=== PATIENT | female | born 1975 | race Caucasian/White ===

== ENCOUNTER 2017-07-16 17:28 | Observation (INO) | payer MEDICAID ==
[~2017-07-16] VITALS: Ht 182.9 cm; Wt 76.2 kg
--- NOTE | ~2017-07-16 | HEMODYNAMI ---
PATIENT:SHELLY DOUGHERTY MEDICAL RECORD: [id number] : 75 [facility] AD[facility]ION DATE: 07/16/17 Generatedon:07/17/201711:42 Patient name: SHELLY DOUGHERTY Patient #: [id number] SSN: : 1975 Date of study: 07/17/2017 Page: Of Hemodynamic Procedure Report Patient Data Patient Demographics Procedure consent was obtained First Name: SHELLY Gender: Female Last Name: LADONNA : 1975 Middle Initial: M Age: 41 year(s) Patient #: [id number] Race: Unknown Additional ID: [id number] Contact details [address]: [address] [place] [address] State: [place] City: [place] Zip code: [address] Past Medical History Allergies: No known allergies Admission Admission Data Admission Date: 07/16/2017 Admission Time: 22:05 Room #: 2119 Procedure Procedure Types Cath Procedure Diagnostic Procedure LHC LHC w/Coronaries PCI Procedure Coronary Stent Coronary Stent Initial Miscellaneous Procedures Moderate Sedation up to 45 minutes Procedure Description Procedure Date Procedure Date: 07/17/2017 Procedure Start Time: 10:47 Procedure End Time: 11:42 Procedure Staff Name Function Francisco Fleming MD Performing Physician Angélica Alaniz RT Monitor Ange Worthington RT Scrub Edinson Davis RN Nurse Procedure Data Cath Procedure Fluoroscopy Diagnostic fluoroscopy Total fluoroscopy Time: 9.7 time: 9.7 min min Diagnostic fluoroscopy Total fluoroscopy dose: dose: 1134 mGy 1134 mGy Contrast Material Contrast Material Type Amount (ml) Isovue 300 179 Entry Location Entry Primary Successful Side Size Upsize 1 Upsize Entry Closure Successful Closure Location (Fr) (Fr) 2 (Fr) Remarks Device Remarks Femoral Right 5 Fr Exoseal artery Femoral Left 6 Fr 6 Fr 6 Fr Exoseal artery Short Mid-Length Short Femoral Left 5 Fr Manual vein Compressio n Estimated blood loss: 10 ml Diagnostic catheters Device Type Used For End Catheter Placement Cordis 5Fr JL 4.0 Left Coronary Catheter (MP) Angiography Cordis 5Fr 3DRC Catheter Right Coronary (MP) Angiography Cordis 5Fr 3DRC Catheter Right Coronary (MP) Angiography Cordis 5Fr Pigtail LV Angiography Catheter (MP) Cordis 5Fr Pigtail Abdominal Catheter (MP) aortogram Procedure Complications No complications Procedure Medications Medication Administration Route Dosage Oxygen NC 2 l/min Lidocaine 2% added to field 20 Heparin Flush Bag added to field 2 bags (1000units/500ml NS) 0.9% NaCl I.V. 100 ml/hr Versed I.V. 1 mg Fentanyl I.V. 50 mcg Versed I.V. 1 mg Fentanyl I.V. 50 mcg Fentanyl I.V. 50 mcg Versed I.V. 1 mg Fentanyl I.V. 50 mcg Heparin Bolus I.V. 4000 units Integrilin (Bolus I.V. 6.8 ml 2mg/ml) Fentanyl I.V. 100 mcg Lopressor I.V. 5 mg Versed I.V. 1 mg Plavix P.O. 75 mg Hemodynamics Rest Heart Rate: 76 (bpm) Pressure Samples Time Site Value (mmHg) Purpose Heart Use Rate(bpm) 11:14 LV 104/13,13 EDP 93 11:15 AO 112/76(92) Pullback 93 11:15 LV 113/15,17 Pullback 93 Gradients Valve Time Site 1 Site 2 Mean SEP/DFP Peak To Heart Use (mmHg) (sec/min) Peak Rate (mmHg) (bpm) Aortic 11:15 LV AO 7 15 1 93 113/15,17 112/76(92) Calculations Valve P-P Mean Valve Index Valve Source Name Gradient Area Flow (cm2) Aortic 1 7 1 7 Snapshots Pre Cath Intra NCS Post Cath Vital Signs Time Heart Resp SPO2 etCO2 NIBP (mmHg) Rhythm Pain Sedation Rate (ipm) (%) (mmHg) Status Level (bpm) 10:35:33 76 12 98 34.1 116/79(101) NSR 0 (11) 10(A) , No pain 10:40:09 76 15 99 31.1 123/82(105) NSR 0 (11) 10(A) , No pain 10:44:50 82 20 96 31.8 116/68(90) NSR 0 (11) 10(A) , No pain 10:49:24 84 17 97 32.5 131/80(98) NSR 0 (11) 10(A) , No pain 10:54:03 83 15 95 36.2 127/72(92) NSR 0 (11) 9(A) , No pain 10:58:41 90 16 97 34.8 115/80(98) NSR 0 (11) 9(A) , No pain 11:03:16 91 16 95 36.2 124/82(98) NSR 0 (11) 9(A) , No pain 11:07:50 94 12 94 31.1 127/77(98) NSR 0 (11) 10(A) , No pain 11:12:23 89 14 94 37.7 118/81(92) NSR 0 (11) 9(A) , No pain 11:16:59 90 17 94 39.9 132/79(105) NSR 0 (11) 9(A) , No pain 11:21:36 101 16 95 38.5 121/73(97) NSR w/ ST 0 (11) 10(A) Elevation , No pain 11:26:57 110 18 96 29.6 163/111(136) NSR w/ ST 0 (11) 10(A) Elevation , No pain 11:32:15 98 16 95 39.3 160/101(134) NSR 0 (11) 9(A) , No pain 11:36:55 81 16 95 39.2 156/108(128) NSR 0 (11) 10(A) , No pain 11:41:36 90 14 95 38.5 149/102(132) NSR 0 (11) 10(A) , No pain Medications Time Medication Route Dose Verified Delivered Reason Notes Effectiveness by by 10:45:22 Oxygen NC 2 Francisco Buffie used for l/min [facility] Maxwell Davis RN procedure 10:45:30 Lidocaine 2% added 20ml Francisco Buffie for local to vial [facility]. Maxwell Davis RN anesthetic field SIMPSON 10:45:36 Heparin Flush added 2 Francisco Buffie used for Bag to bags [facility]. Maxwell Davis RN procedure (1000units/500ml field SIMPSON NS) 10:45:44 0.9% NaCl I.V. 100 Francisco Buffie Per physician ml/hr [facility] Maxwell Davis RN, MD 10:47:09 Versed I.V. 1 mg Francisco Buffie for sedation [facility] Maxwell Davis RN, MD 10:47:15 Fentanyl I.V. 50 Francisco Buffie for sedation mcg [facility] Maxwell Davis RN, MD 10:53:59 Versed I.V. 1 mg Francisco Buffie for sedation St. Maxwell Davis RN, MD 10:54:02 Fentanyl I.V. 50 Francisco Buffie for sedation mcg [facility] Maxwell Davis RN, MD 11:00:56 Fentanyl I.V. 50 Francisco Buffie for sedation mcg [facility] Maxwell Davis RN, MD 11:05:24 Versed I.V. 1 mg Francisco Buffie for sedation St. Maxwell Davis RN, MD 11:05:30 Fentanyl I.V. 50 Francisco Buffie for sedation mcg [facility] Maxwell Davis RN, MD 11:15:29 Heparin Bolus I.V. 4000 Francisco Buffie for verifi ed units [facility]. Maxwell Davis RN anticoagulation with dr MD wasserman 11:19:49 Integrilin I.V. 6.8 Francisco Buffie for wasted (Bolus 2mg/ml) ml [facility] Maxwell Davis RN antiplatelet 3.2 ml MD therapy of vial 11:22:58 Fentanyl I.V. 100 Francisco Buffie for sedation mcg [facility] Maxwell Davis RN, MD 11:27:47 Versed I.V. 1 mg Francisco Buffie for sedation St. Maxwell Davis RN, MD 11:31:15 Lopressor I.V. 5 mg Francisco Buffie Per physician St. Maxwell Davis RN, MD 11:39:09 Plavix P.O. 75 mg Francisco Buff[address] for [facility] Maxwell Davis RN antiplatelet MD therapy Procedure Log Time Note 10:15:26 Ange Worthington RT(R) sent for patient. Start room use. 10:27:32 Time tracking: Regular hours 10:27:36 Plan of Care:Hemodynamics will remain stable., Cardiac rhythm will remain stable., Comfort level will be maintained., Respiratory function will remain adequate., Patient/ family verbilizes understanding of procedure., Procedure tolerated without complication., Recovers from procedure without complications.. 10:27:41 Patient received from PCU to CCL 1 Alert and oriented. Tansferred to table in Supine position. 10:27:42 Warm blankets applied, and enzo hugger turned on for patient comfort. 10:27:42 Correct patient and procedure confirmed by team. 10:27:43 Signed procedure consent form obtained from patient. 10:27:44 ECG and BP/O2 sat monitors applied to patient. 10:27:46 Full Disclosure recording started 10:34:45 Vital chart was started 10:34:48 Rhythm: sinus rhythm 10:34:53 H&P Date Dictated: 07/17/2017 Within 30 days and on chart.. 10:34:55 Pre-procedure instructions explained to patient. 10:34:56 Pre-op teaching completed and patient verbalized understanding. 10:34:58 Family in patients room. 10:34:59 Patient NPO since Midnight. 10:35:06 Patient allergic to No known allergies 10:35:08 Is the patient allergic to Iodine/contrast media? No. 10:35:13 Patient diabetic? No. 10:35:20 Previous problem with sedation/anesthesia? No ? 10:35:22 Snore? Yes 10:35:25 Sleep apnea? No 10:35:26 Deviated septum? No 10:35:27 Opens mouth fully? Yes 10:35:27 Sticks out tongue? Yes 10:35:29 Airway obstruction? No ? 10:35:31 Dentures? No ? 10:35:39 Is patient on blood thinner?Yes 10:35:41 ACC The patient was administered the following blood thiners within the last 24 hours: ACCPlavix 10:35:44 Pre procedure: right dorsailis pedis pulse 2+ Normal; easily identifiable; not easily obliterated 10:35:46 Patient pain scale 0/10 ?. 10:35:51 IV patent on arrival in right hand with 0.9% NaCl at O. 10:35:55 Lab results completed and on chart. 10:35:58 Right groin area was prepped with chlora-prep and draped in sterile fashion 10:35:59 Alarms reviewed by R. N. 10:36:00 Sharps counted by scrub and verified by R.N. 10:36:04 Use device set Femoral Dx 10:36:05 Acist Syringe opened to sterile field. 10:36:06 Bag Decanter opened to sterile field. 10:36:06 Medline Cath Pack opened to sterile field. 10:36:06 Terumo 5Fr [place] Sheath opened to sterile field. 10:36:07 St Phi 260cm J .035 wire opened to sterile field. 10:36:08 Acist Hand Control opened to sterile field. 10:36:09 Acist Manifold opened to sterile field. 10:36:09 Diagnostic Infinity 5Fr Multipack catheter opened to sterile field. 10:36:10 Tegaderm 4 x 4 opened to sterile field. 10:36:45 IV Extension Set opened to sterile field. 10:38:16 PERCUTANEOUS ENTRY 19GA needle opened to sterile field. 10:39:10 Physician paged 10:40:54 Baseline sample Acquired. 10:41:29 Zero performed for pressure channel P1 10:45:22 Oxygen 2 l/min NC was administered by Edinson Davis RN; used for procedure; 10:45:30 Lidocaine 2% 20ml vial added to field was administered by Edinson Davis RN; for local anesthetic; 10:45:36 Heparin Flush Bag (1000units/500ml NS) 2 bags added to field was administered by Edinson Davis RN; used for procedure; 10:45:44 0.9% NaCl 100 ml/hr I.V. was administered by Edinson Davis RN; Per physician; 10:46:21 Final Timeout: patient, procedure, and site verified with staff and physician. All members of the team are in agreement. 10:46:23 Right groin site verified by team. 10:46:26 Physical assessment completed. ASA score P 2 - A patient with mild systemic disease as per Francisco Fleming MD. 10:46:29 Sedation plan: IV Moderate Sedation Medication:Versed, Fentanyl 10:47:09 Versed 1 mg I.V. was administered by Edinson Davis RN; for sedation; 10:47:15 Fentanyl 50 mcg I.V. was administered by Edinson Davis RN; for sedation; 10:47:33 Procedure started. 10:47:40 Local anesthetic to right femoral artery with Lidocaine 2% by Francisco Fleming MD.INITIAL ACCESS ONLY 10:49:09 A 5 Fr sheath was inserted into the Right Femoral artery 10:49:20 A Cordis 5Fr JL 4.0 Catheter (MP) was advanced over the wire and used for Left Coronary Angiography. 10:52:18 Catheter removed. 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 10:53:59 Versed 1 mg I.V. was administered by Edinson Davis RN; for sedation; 10:54:02 Fentanyl 50 mcg I.V. was administered by Edinson Davis RN; for sedation; 10:54:11 Terumo ANGLE 260cm glide wire opened to sterile field. 10:54:28 Merit BasixCompak Inflation Kit opened to sterile field. 10:54:29 Terumo 6Fr [place] Sheath opened to sterile field. 10:54:59 Eastman Whisper J 300cm 0.014 guide wire opened to sterile field. 10:55:42 exchange glide wire advanced. 10:58:44 Wire removed. 10:58:54 Left groin area was prepped with chlora-prep and draped in sterile fashion 10:59:20 Left groin prepped due to Dissection in Right Iliac. 10:59:27 Local anesthetic to left femerol artery with Lidocaine 2% by Francisco Fleming MD.ADDITIONAL ACCESS 11:00:56 Fentanyl 50 mcg I.V. was administered by Edinson Davis RN; for sedation; 11:05:24 Versed 1 mg I.V. was administered by Edinson Davis RN; for sedation; 11:05:30 Fentanyl 50 mcg I.V. was administered by Edinson Davis RN; for sedation; 11:08:11 Cordis 6Fr Brite Tip 35cm Sheath opened to sterile field. 11:09:58 A 5 Fr sheath was inserted into the Left Femoral vein 11:10:17 ST Phi 4Fr Sheath opened to sterile field. 11:10:22 Terumo 5Fr [place] Sheath opened to sterile field. 11:10:48 A 6 Fr Short sheath was inserted into the Left Femoral artery 11:11:01 Sheath upsized to a 6 Fr Mid-Length. 11:11:37 A Cordis 5Fr 3DRC Catheter (MP) was advanced over the wire and used for Right Coronary Angiography. 11:13:25 Catheter removed. 11:13:34 A Cordis 5Fr Pigtail Catheter (MP) was advanced over the wire and used for LV Angiography. 11:14:42 LV gram done using KRAUS 11:14:44 LV hemodynamics recorded. 11:14:51 Injector settings: Ml/sec: 5, Volume: 15, 11:15:00 EF : 60 % 11:15:29 Heparin Bolus 4000 units I.V. was administered by Edinson Davis RN; for anticoagulation; verified with dr wasserman 11:15:58 Catheter removed. 11:16:48 Medtronic Launcher 6Fr JL 3.5 guide catheter opened to sterile field. 11:19:49 Integrilin (Bolus 2mg/ml) 6.8 ml I.V. was administered by Edinson Davis RN; for antiplatelet therapy; wasted 3.2 ml of vial 11:19:53 ACC Pre-intervention JAYJAY Flow is 0. 11:20:05 Study PCI Site: [place] pLAD has 100% stenosis. 11:20:23 Inflation number: 1 A Eldridge Sci [place] 3.0 X 15 balloon was prepped and advanced across the Prox LAD, then inflated to 8 RANCHO for 0:12 (min:sec). 11:21:06 Inflation number: 2 The Eldridge Sci [place] 3.0 X 15 balloon was reinflated across the Prox LAD, to 8 RANCHO for 0:22 (min:sec). 11:21:55 Inflation number: 3 The Eldridge Sci [place] 3.0 X 15 balloon was reinflated across the Prox LAD, to 8 RANCHO for 0:24 (min:sec). 11:22:41 Inflation number: 4 The Eldridge Sci [place] 3.0 X 15 balloon was reinflated across the Prox LAD, to 10 RANCHO for 0:18 (min:sec). 11::58 Fentanyl 100 mcg I.V. was administered by Edinson Davis RN; for sedation; 11:25:25 Balloon removed over the wire. 11:27:47 Versed 1 mg I.V. was administered by Edinson Davis RN; for sedation; 11:27:56 Inflation Number: 5 A Medtronic Integrity 3.0 X 15 stent was prepped and advanced across the Prox LAD. The stent was deployed at 14 RANCHO for 0:24 (min:sec). 11:28:29 Stent catheter was removed intact over wire. 11:28:30 Wire removed. 11:29:08 Guide catheter removed. 11:31:15 Lopressor 5 mg I.V. was administered by Edinson Davis RN; Per physician; 11:31:36 A Cordis 5Fr Pigtail Catheter (MP) was advanced over the wire and used for Abdominal aortogram. unable to advance catheter 11:32:47 Cordis 5Fr Exoseal opened to sterile field. 11:32:48 Cordis 6Fr Exoseal opened to sterile field. 11:32:56 Catheter removed. 11:33:10 Sheath upsized to a 6 Fr Short. 11:33:10 Sheath removed intact; hemostasis achieved with Exoseal to the Left Femoral artery. 11:33:18 Sheath removed intact; hemostasis achieved with Exoseal to the Right Femoral artery. 11:33:21 Procedure ended.(Physican Out) 11:34:10 Tegaderm 4 x 4 opened to sterile field. 11:38:10 Fluoroscopy time 09.70 minutes. 11:38:15 Flurop Dose total: 1134 11:38:15 Fluoroscopy dose: 1134 mGy 11:38:28 Contrast amount:Isovue 300 179ml. 11:38:30 Sharps counted by scrub and verified by R.N. 11:38:33 Insertion/operative site no bleeding no hematoma. 11:38:36 Post-op/insertion site Right Femoral artery dressed using a 4 x 4 and Tegaderm. 11:38:42 Post-op/insertion site Left Femoral artery dressed using a 4 x 4 and Tegaderm. 11:38:49 Post right femoral artery:stable, clean and dry 11:38:59 Sheath removed intact; hemostasis achieved with Manual Compression to the Left Femoral vein. 11:39:02 Post Procedure Pulses reassessed and unchanged 11:39:05 Post-procedure physical assessment completed. ASA score P 2 - A patient with mild systemic disease as per Francisco Fleming MD. 11:39:07 Post procedure rhythm: unchanged. 11:39:09 Plavix 75 mg P.O. was administered by Edinson Davis RN; for antiplatelet therapy; 11:39:10 Estimated blood loss: 10 ml 11:39:12 Post procedure instruction explained to patient.Patient verbalizes understanding. 11:39:13 Patient needs reinforcement of post procedure teaching. 11:39:30 Procedure type changed to Cath procedure, Diagnostic procedure, LHC, LHC w/Coronaries, PCI procedure, Coronary Stent, Coronary Stent Initial, Miscellaneous Procedures, Moderate Sedation up to 45 minutes 11:39:39 Procedure Complication : No complications 11:39:42 See physician's report for complete and final results. 11:40:36 Procedure and supply charges have been captured, reviewed, submitted and are correct. 11:42:01 Vital chart was stopped 11:42:03 Report given to PCU. 11:42:07 Patient transfered to PCU with Bed. 11:42:15 Procedure ended. 11:42:15 Full Disclosure recording stopped 11:42:21 End room use (Document Last) Intervention Summary Intervention Notes Time ActionType Lesion and Equipment Action# Pressure Duration Attributes Used 11:20:23 Inflate Prox LAD Eldridge 1 8 00:12 balloon Sci [place] 3.0 X 15 balloon 11:21:06 Reinflate Prox LAD Eldridge 2 8 00:22 balloon Sci [place] 3.0 X 15 balloon 11:21:55 Reinflate Prox LAD Eldridge 3 8 00:24 balloon Sci [place] 3.0 X 15 balloon 11:22:41 Reinflate Prox LAD Eldridge 4 10 00:19 balloon Sci [place] 3.0 X 15 balloon 11:27:56 Place stent Prox LAD Medtronic 5 14 00:25 Integrity 3.0 X 15 stent Device Usage Item Name Manufacture Quantity Catalog Number Hospital Part Current Min imal Lot# / Charge Number Stock Stock Serial# Code Acist Acist 1 30025 464002 397728 146979 20 Syringe Medical Systems Inc Bag Decanter Microtek 1 2002S 599846 38181 176271 5 Medical Inc. Medline Cath Cardinal 1 [id number] 449912 92039 810143 5 Pack Health Terumo 5Fr Terumo 2 [id number] 520909 010585 698286 [address] [place] [address] [facility] St Phi 1 827032 761465 405927 897772 30 260cm J .035 wire Acist Hand Acist 1 45379 336510 535245 151175 5 Control Medical Systems Inc Acist Acist 1 49011 110594 462697 500513 5 Manifold Medical Systems Inc Diagnostic Cardinal 1 [id number] 488891 51110 620146 30 Infinity 5Fr Health Multipack catheter Tegaderm 4 x 3M 2 1626W 807848 683890 290258 5 4 IV Extension Hospira 1 50308-71 735770 84612 136663 5 Set PERCUTANEOUS [facility] 1 [id number] 493739 540185 5 ENTRY 19GA needle Cordis 5Fr Cardinal 1 734754 5 JL 4.0 Health Catheter (MP) Cordis 5Fr Cardinal 1 248999 5 3DRC Health Catheter (MP) Terumo ANGLE Terumo 1 YP1900 373600 309063 704595 5 260cm glide wire Merit Merit 1 RM8983 253263 342851 703554 15 42Floors Medical Inflation Kit Terumo 6Fr Terumo 1 KPN158 549224 951201 618805 40 [place] Sheath Eastman Eastman 1 [id number] 400961 031346 724632 5 Whisper J Vascular 300cm 0.014 guide wire Cordis 6Fr Cardinal 1 [id number] 348029 009162 571681 1 Brite Tip Health 35[address] Sheath ST Phi 4Fr St Phi 1 989689 925845 775751 355622 5 Sheath Cordis 5Fr Cardinal 1 075331 5 Pigtail Health Catheter (MP) Medtronic Medtronic 1 [id number] 697637 96722 325486 1 Launcher 6Fr JL 3.5 guide catheter Eldridge Sci Eldridge 1 [id number] 355652 063246 787131 1 [id number] [place] 3.0 Scientific X 15 balloon Medtronic Medtronic 1 [id number] 238533 154983 2 [id number] Integrity 3.0 X 15 stent Cordis 5Fr Cardinal 1 EX500 990223 033190 002142 10 Exoseal Health Cordis 6Fr Cardinal 1 EX600 622574 598395 614926 10 Exoseal Health Signature Audit [place] Stage Time Signature Unsigned Intra-Procedure 07/17/2017 Angélica 11:42:37 AM Counts RT(R) Signatures Monitor : Angélica Signature : Counts RT Date : Time : [facility] [address] [place] [address]
[2017-07-16 18:46] LABS: BASOPHILS 0.2 % (0-2); EOSINOPHILS 1.6 % (0-7); HEMATOCRIT 45.4 % (36.0-48.0); HEMOGLOBIN 16.1 g/dL (12-16); IMMATURE GRANULOCYTES 0.3 % (0-5); LYMPHOCYTES 21.5 % (15-50); MCH 31.1 pg (26.0-34.0); MCHC 35.5 g/dL (31.0-37.0); MCV 87.8 fL (80.0-100.0); MEAN PLATELET VOLUME 10.1 fL (7.4-10.4); MONOCYTES 4.9 % (2-11); NEUTROPHILS 71.5 % (40-80); PLATELET COUNT 290 10x3/uL (130-400); RBC 5.17 10x6/uL (4.00-5.40); RDW 12.7 % (11.5-14.5); WBC 15.4 10x3/uL (4.8-10.8)
[2017-07-16 19:19] LABS: ALBUMIN 3.5 g/dL (3.4-5.0); ALKALINE PHOSPHATASE 84 U/L (46-116); ALT (SGPT) 18 U/L (10-68); BILIRUBIN - TOTAL 0.18 mg/dL (0.2-1.3); CALC OSMOLALITY 278 mosm/kg (275-300); CALCIUM 9.4 mg/dL (8.5-10.1); CARBON DIOXIDE 20.6 mmol/L (21.0-32.0); CHLORIDE - SERUM 106 mmol/L (98-107); CREATININE - SERUM 0.6 mg/dL (0.6-1.3); GLUCOSE 95 mg/dL (74-106); POTASSIUM - SERUM 3.9 mmol/L (3.5-5.1); PROTEIN - SERUM 7.5 g/dL (6.4-8.2); SODIUM 141 mmol/L (136-145); UREA NITROGEN 8 mg/dL (7-18); eGFR NON AFRICAN AMERICAN > 90 mL/min (90-120)
[2017-07-16 19:36] LABS: CHOL - HDL RATIO 8.8 ratio (2.3-4.1); CHOLESTEROL, TOTAL 273 mg/dL (0-200); CREATINE KINASE 76 UL (21-215); HDL CHOLESTEROL 31 mg/dL (32-96); LDL CHOLESTEROL 199 mg/dL (0-100); LDL-HDL RATIO 6.4 ratio (1.5-3.5); TRIGLYCERIDE 216 mg/dL (30-200)
[2017-07-16 19:38] LABS: APPEARANCE CLEAR (CLEAR); BILIRUBIN NEGATIVE (NEGATIVE); COLOR YELLOW (YELLOW); GLUCOSE NEGATIVE (NEGATIVE); KETONE NEGATIVE (NEGATIVE); NITRITE NEGATIVE (NEGATIVE); PROTEIN NEGATIVE (NEGATIVE); UROBILINOGEN NORMAL (NORMAL)
[2017-07-16 19:50] LABS: TROPONIN-I 0.357 ng/mL (0.000-0.060)
[2017-07-16 23:19] LABS: CKMB 11.6 U/L (0.0-3.6); CREATINE KINASE 122 UL (21-215)
--- NOTE | 2017-07-16 23:20 | NUR ---
REPORT RECEIVED FROM BART FALCON IN ER. STATES THERE IS A 20G IN RIGHT WRIST. STATES THAT PT HAS PAIN IN CHEST THAT RADIATES TO LEFT ARM, WHEN ASKED IF MORHINE WAS GIVEN SHE STATED NO, THERE IS NO ORDER FOR MORPHINE. I ASKED WHY SINCE PT IS A CHEST PAIN ADMIT?. SHE STATED ITS JUST NOT, WE GAVE HER NITRO. STATED THAT ASA, NITRO, PLAVIX AND LOVENOX WAS GIVEN IN ER. WILL ADMIT PT TO ROOM 3585
[2017-07-16 23:21] LABS: TROPONIN-I 2.101 ng/mL (0.000-0.060)
--- NOTE | 2017-07-16 23:30 | NUR ---
PT ARRIVED TO ROOM 2118. NO ID BAND ON ARRIVAL. PT HAS ONE NOW. PT HAS A 20G IV ON RIGHT WRIST S/L. PT LAYING ON FLOOR. GOT HIM A CHAIR HE CHOSE TO STAY ON FLOOR AND SLEEP. PT TELEMETRY APPLIED. PT VERBALIZED UNDERSTANDING OF BEING NPO. PT AAO. DENIES ANY NEEDS AT THIS TIME, C/O PAIN IN LEFT ARM. WILL SPEAK WITH [facility] ABOUT THIS. BED LOW AND CALL LIGHT IN REACH. WILL CPOC
[2017-07-16] MEDS ORDERED: METOPROLOL TART50 MG PO (23:37)
[2017-07-16] MEDS ORDERED: ATIVAN1 MG PO (23:38)
[2017-07-16] MEDS ORDERED: CELEXA20 MG PO (23:39)
[2017-07-16] MEDS ORDERED: SYNTHROID50 MCG PO (23:41)
[2017-07-17] VITALS: BP 148/92
[2017-07-17 01:51] VITALS: BP 148/92; Ht 182.9 cm; Wt 76.2 kg
[2017-07-17 04:00] VITALS: BP 126/90
--- NOTE | 2017-07-17 04:04 | NUR ---
PT ASLEEP. PT NORMAL SINUS, 68 WITH PVC ON THE MONITOR. RESPIRATIONS EVEN AND UNLABORED. NO S/S OF DISTRESS. BED LOW AND CALL LIGHT IN REACH. WILL CPOC
--- NOTE | 2017-07-17 07:30 | NUR ---
RECEIVED PT IN BED AAOX4 RESP UNLABORED SKIN W/D COLOR WNL DENIES ANY NEEDS OR DISCOMFORT AT THIS TIME NAD NOTED
[2017-07-17 08:00] VITALS: BP 126/78
--- NOTE | 2017-07-17 10:24 | NUR ---
TO ANIMAL CARE ATTENDANT VIA BED IN STABLE CONDITION
--- NOTE | 2017-07-17 12:00 | NUR ---
RECEIVED PT BACK FROM EXPERIMENTAL PREFLIGHT MECHANIC VSS PPPX4 RT AND LT GROIN C/D/I WILL CONTINE TO MONITOR
[2017-07-17 16:00] VITALS: BP 143/81
[2017-07-17] MEDS ORDERED: LIPITOR20 MG PO (18:09)
[2017-07-17] MEDS ORDERED: PLAVIX75 MG PO (18:10)
--- NOTE | 2017-07-17 18:46 | NUR ---
REVIEWED DISCHARGE INSTRUCTIONS WITH PT STATES UNDERSTANDING COPY GIVEN DCD SALINE LOCK TO RT HAND WITH IV CATHETER INTACT SITE FREE OF REDNESS OR EDEMA PT DISCHARGED HOME IN STABLE CONDITION WITH ALL PERSONAL BELONGINGS
--- NOTE | 2017-07-18 11:39 | HP ---
PATIENT: SHELLY BONILLA MEDICAL RECORD: [id number] ACCOUNT: [id number] LOCATION:[facility].2119 : 75 ADMISSION DATE: 07/16/17 HISTORY AND PHYSICAL EXAMINATION HISTORY OF PRESENT ILLNESS: This is a 41-year-old female with no known history of coronary artery disease. She has history of hypertension and hypothyroidism, on replacement. She has been having intermittent chest tightness and pressure since approximately Wednesday, radiating to the left arm. Intermittent dyspnea and nausea. Presented and found to have ST-T changes, minor really lateral and elevated troponins consistent with non-STEMI. We are asked to see her concerning cardiovascular. She is admitted for further evaluation. PAST MEDICAL HISTORY: Includes; 1. History of hypertension. 2. Hyperlipidemia, not on treatment. 3. Hypothyroidism, on replacement. ALLERGIES: None known. MEDICATIONS: Typically include metoprolol 50 b.i.d., Celexa 20 every day, Ativan 1 mg p.o. t.i.d. p.r.n., Synthroid 50 mcg every day. SOCIAL HISTORY: Works at [employer]. She does smoke. Denies illicit drug use. Easily takes care of all ADLs. REVIEW OF SYSTEMS: The patient reports easy bruising but reports no swollen glands. The patient reports no fever, no night sweats, no significant weight gain, no significant weight loss. No significant exercise tolerance. The patient reports no dry eyes, no irritation, no vision change. Patient reports no difficulty hearing and no ear pain. Patient reports no frequent nose bleeds or nose and sinus problems. Patient reports on arm pain on exertion. No shortness of breath while lying down. No history of heart murmur. Patient reports no cough, no wheezing or coughing up blood. Patient reports no abdominal pain, no vomiting. Normal appetite. No diarrhea and not vomiting blood. No nausea and no constipation. Patient reports no incontinence. No difficulty urinating. No hematuria. No increased frequency. Patient reports no muscle aches. No weakness, no arthralgias, no back pain. No swelling of the extremities. Patient reports no abnormal mole, no jaundice, no rashes. Reports no loss of consciousness. No weakness and no numbness. No seizures, dizziness, or headaches. The patient reports no depression, no sleep disturbance, feeling safe in a relationship and no alcohol abuse. Patient reports on fatigue. Reports no runny nose or sinus pressure. No itching, no hives, and no frequent sneezing. PHYSICAL EXAMINATION: GENERAL: Pleasant female, in no acute distress. VITAL SIGNS: Blood pressure 126/78, pulse 77 and regular. HEENT: Normocephalic, atraumatic. NECK: No bruits noted. HEART: Regular. LUNGS: Rosa clear. ABDOMEN: Soft, nontender. EXTREMITIES: Pulses 2+ with no edema. NEUROLOGIC: Grossly intact. HISTORY AND PHYSICAL [id number] SHELLY BONILLA DIAGNOSTIC DATA: ECG shows lateral nonspecific ST-T changes. IMPRESSION: Udu-LB-byndewtyq myocardial infarction. PLAN: Diagnostic angiography, intervention based on the above. TRANSINT:[id number] Voice Confirmation ID: [id number] DOCUMENT ID: [id number] FIDE LUGO MD at 1139 CC: [id number] DICTATION DATE: 07/17/17 0843 RUG WASHER: 07/17/17 0930 DIS IN 07/17/17 [id number] [place] [address]
--- NOTE | 2017-07-18 11:39 | OP ---
PATIENT NAME: SHELLY BONILLA MEDICAL RECORD: [id number] :75 LOCATION:D.M2 D.2119 ADMISSION DATE:07/16/17 SURGEON: FIDE LUGO MD DATE OF OPERATION: 07/17/2017 PROCEDURES: Left heart catheterization, selective coronary angiography, right femoral artery approach, and left femoral artery approach. Questionable disease in both iliacs with difficulty ____ long sheath on the left. FINDINGS: Left ventriculography in 30-degree KRAUS view: Normal wall motion, normal systolic function. CORONARY ANATOMY LEFT MAIN: Left main is free of disease. LAD: LAD is free of disease in diagonal system. CIRCUMFLEX: Small vessel, about 80% stenosis distally. RAMUS: Basically subtotal with what appears to be a reasonable vessel distally. RIGHT CORONARY ARTERY: Has multiple ectatic areas. PLAN: We will plan intervention to subtotaled ramus momentarily. A JL4 guide catheter provided excellent guide catheter support, followed by 300 cm Whisper wire was placed across the subtotaled ramus down this vessel. Mutliple balloon inflations with 3.0 x 15 Pepin balloon. Stent deployed was a 3.0 x 15 Integrity nondrug-eluting stent up to 14 atmospheres. Final angiography shows excellent resolution with nice plumping of the distal vessel. JAYJAY flow improved from 0 to 3. Integrilin was used in the case. Plavix had been loaded previously. Sheath closed with ExoSeal device. Plan intervention to the circumflex at a later date. TRANSINT:[id number] Voice Confirmation ID: [id number] DOCUMENT ID: [id number] FIDE LUGO MD at 1139 CC: [id number] DICTATION DATE: 07/17/17 1146 SENIOR PACKAGING ENGINEER: 07/17/17 1246 DIS IN 07/17/17 [address] [address] [place] [address]
--- NOTE | 2017-07-18 11:39 | DS ---
PATIENT:SHELLY BONILLA :75 MEDICAL RECORD: [id number] DISCHARGE SUMMARY ADMISSION DATE: 07/16/17 DISCHARGE DATE: 07/17/17 DATE OF ADMISSION: 07/16/2017. DATE OF DISCHARGE: 07/17/2017. PROBLEM LIST: 1. Non-ST elevation myocardial infarction. 2. Coronary artery disease. 3. Hypertension. BRIEF HISTORY AND HOSPITAL COURSE: She was admitted with a non-ST elevation myocardial infarction, underwent intervention to the OM, good results, discharged home in good condition. ACTIVITY: As tolerated. DIET: AHA diet. FOLLOWUP: Will be intervention of the circumflex at a later date. TRANSINT:[id number] Voice Confirmation ID: [id number] DOCUMENT ID: [id number] FIDE LUGO MD at 1139 CC: [id number] DICTATION DATE: 07/17/17 1304 PHP PROGRAMMER: 07/17/17 1459 DIS IN 07/17/17 [address] [address] [place] [address]
== END 2017-07-17 18:46 | disposition home or self-care (01) ==
LOC: D.ER 17:28 → OBSVTIME 22:05 → D.M2 22:05
PROVIDERS: Emergency Medicine; Family Medicine; Physician Assistant Medical; ADMIT Internal Medicine Interventional Cardiology
DX: I21.4 Non-ST elevation (NSTEMI) myocardial infarction (principal); I25.10 Atherosclerotic heart disease of native coronary artery without angina pectoris; E03.9 Hypothyroidism, unspecified; E78.5 Hyperlipidemia, unspecified; I10 Essential (primary) hypertension

== ENCOUNTER 2017-08-05 10:50 | Outpatient (CLI) | payer MEDICAID ==
[~2017-08-05] VITALS: Ht 182.9 cm; Wt 84.1 kg
--- NOTE | ~2017-08-05 | HEMODYNAMI ---
PATIENT:SHELLY BONILLA MEDICAL RECORD: [id number] : 75 LOCATION:DJUAN CARLOS ADMISSION DATE: 08/05/17 Generatedon:08/05/201714:15 Patient name: SHELLY BONILLA Patient #: [id number] SSN : : 1975 Date of study: 08/05/2017 Page: Of Hemodynamic Procedure Report Patient Data Patient Demographics Procedure consent was obtained First Name: SHELLY Gender: Female Last Name: CHAD : 1975 Middle Initial: M Age: 41 year(s) Patient #: [id number] Race: Unknown Additional ID: [id number] Contact details Address: [address] [place] [address] State: [place] City: [place] Zip code: [address] Past Medical History Allergies: No known allergies Admission Admission Data Admission Date: 08/05/2017 Admission Time: 10:50 Procedure Procedure Types Cath Procedure PCI Procedure Coronary Stent Coronary Stent Initial Miscellaneous Procedures Moderate Sedation up to 30 minutes Procedure Description Procedure Date Procedure Date: 08/05/2017 Procedure Start Time: 13:44 Procedure End Time: 14:13 Procedure Staff Name Function Francisco Fleming MD Performing Physician Ange Worthington RT Monitor Nancy Mcdonnell RT Scrub Zhen Arita RN Nurse Avis Pretty RN Nurse Procedure Data Cath Procedure Fluoroscopy Diagnostic fluoroscopy Total fluoroscopy Time: 7.7 time: 7.7 min min Diagnostic fluoroscopy Total fluoroscopy dose: 789 dose: 789 mGy mGy Contrast Material Contrast Material Type Amount (ml) Isovue 300 80 Entry Location Entry Primary Successful Side Size Upsize Upsize Entry Closure Riddle ccessful Closure Location (Fr) 1 (Fr) 2 (Fr) Remarks Device Remarks Radial Right 6 Fr Mechanical artery Short Compression Estimated blood loss: 5 ml Procedure Complications No complications Procedure Medications Medication Administration Route Dosage 0.9% NaCl I.V. 100 ml/hr Oxygen NC 2 l/min Lidocaine 2% added to field 20 Heparin Flush Bag added to field 2 bags (1000units/500ml NS) Radial Cocktail added to field 1 syringe (Verapomil 2mg/Nitro 400mcg/Heparin 1500units) Versed I.V. 2 mg Fentanyl I.V. 50 mcg Fentanyl I.V. 50 mcg Versed I.V. 1 mg Versed I.V. 1 mg Fentanyl I.V. 100 mcg Heparin Bolus I.V. 4000 units Versed I.V. 1 mg Versed I.V. 1 mg Fentanyl I.V. 50 mcg Fentanyl I.V. 50 mcg Hemodynamics Rest Heart Rate: 90 (bpm) Snapshots Pre Cath Intra NCS Post Cath Vital Signs Time Heart Resp SPO2 etCO2 NIBP (mmHg) Rhythm Pain Sedation Rate (ipm) (%) (mmHg) Status Level (bpm) 13:29:36 78 16 100 25.6 119/73(99) NSR 0 (11) 10(A) , No pain 13:33:43 89 16 99 24.2 116/73(100) NSR 0 (11) 10(A) , No pain 13:37:51 88 19 99 36.3 110/73(91) NSR 0 (11) 10(A) , No pain 13:41:55 89 17 98 36.3 118/75(86) NSR 0 (11) 10(A) , No pain 13:46:05 90 19 98 35.5 108/69(97) NSR 0 (11) 10(A) , No pain 13:50:06 99 20 96 34 113/77(86) NSR 0 (11) 10(A) , No pain 13:54:16 103 17 96 37 134/60(85) NSR 0 (11) 9(A) , No pain 13:58:32 92 17 98 38.5 122/66(94) NSR 0 (11) 9(A) , No pain 14:02:38 102 20 98 37 132/77(105) NSR 0 (11) 10(A) , No pain 14:06:48 81 20 98 40 144/80(110) NSR 0 (11) 9(A) , No pain 14:11:00 83 19 98 37.7 139/87(131) NSR 0 (11) 10(A) , No pain Medications Time Medication Route Dose Verified Delivered Reason Not es Effectiveness by by 13:08:17 0.9% NaCl I.V. 100ml/hr Francisco Avis used for [facility] RN procedure 13:08:26 Oxygen NC 2 l/min Francisco Avis Per physician [facility] RN, MD 13:08:39 Lidocaine 2% added 20ml Francisco Singh for local to vial [facility] anesthetic field MD SIMPSON 13:08:46 Heparin Flush added 2 bags Francisco Singh used for Bag to [facility] procedure (1000units/500ml field MD SIMPSON NS) 13:36:02 Radial Cocktail added 1 Francisco Francisco for (Verapomil to syringe [facility] vasodilation 2mg/Nitro field MD SIMPSON 400mcg/Heparin 1500units) 13:41:08 Versed I.V. 2 mg Francisco Avis for sedation [facility] RN, MD 13:41:19 Fentanyl I.V. 50 mcg Francisco Avis for sedation [facility] RN, MD 13:44:53 Fentanyl I.V. 50 mcg Francisco Avis for sedation [facility] RN, MD 13:45:01 Versed I.V. 1 mg Francisco Avis for sedation [facility] RN, MD 13:46:39 Heparin Bolus I.V. 4000 Francisco Avis for surendra ified units [facility] Pretty RN anticoagulation by dr. MD wasserman 13:48:29 Versed I.V. 1 mg Francisco Avis for sedation [facility] RN, MD 13:48:39 Fentanyl I.V. 100 mcg Francisco Avis for sedation [facility] RN, MD 13:50:14 Versed I.V. 1 mg Francisco Avis for sedation surendra ified [facility] Pretty RN by dr. MD wasserman 13:51:49 Versed I.V. 1 mg Francisco Avis for sedation surendra ified [facility] Pretty RN by dr. MD wasserman 13:55:06 Fentanyl I.V. 50 mcg Francisco Avis for sedation surendra ified [facility] Maxwell Pretty RN by dr. MD wasserman 14:00:01 Fentanyl I.V. 50 mcg Francisco Avis for sedation surendra ified [facility] Maxwell Pretty RN by dr. MD wasserman Procedure Log Time Note 13:03:47 Diagnostic Cath Status : Elective 13:04:23 Ange Worthington RT(R) sent for patient. Start room use. 13:04:23 Time tracking: Regular hours 13:04:28 Plan of Care:Hemodynamics will remain stable., Cardiac rhythm will remain stable., Comfort level will be maintained., Respiratory function will remain adequate., Patient/ family verbilizes understanding of procedure., Procedure tolerated without complication., Recovers from procedure without complications.. 13:08:17 0.9% NaCl 100ml/hr I.V. was administered by Avis Pretty RN; used for procedure; 13:08:26 Oxygen 2 l/min NC was administered by Avis Pretty RN; Per physician; 13:08:39 Lidocaine 2% 20ml vial added to field was administered by Francisco Fleming MD; for local anesthetic; 13:08:46 Heparin Flush Bag (1000units/500ml NS) 2 bags added to field was administered by Francisco Fleming MD; used for procedure; 13:23:15 Patient received from Pre/Post Procedure Room to [facility] 2 Alert and oriented. Tansferred to table in Supine position. 13:23:16 Warm blankets applied, and enzo hugger turned on for patient comfort. 13:23:17 Correct patient and procedure confirmed by team. 13:23:18 Signed procedure consent form obtained from patient. 13:23:19 ECG and BP/O2 sat monitors applied to patient. 13:28:30 Vital chart was started 13:36:02 Radial Cocktail (Verapomil 2mg/Nitro 400mcg/Heparin 1500units) 1 syringe added to field was administered by Francisco Fleming MD; for vasodilation; 13:38:40 Baseline sample Acquired. 13:38:45 Rhythm: sinus rhythm 13:38:47 Full Disclosure recording started 13:38:51 H&P Date Dictated: 08/05/2017 H&P Addendum completed by physician on day of procedure. (MUST COMPLETE FOR ALL OUTPATIENTS), New H&P dictated by physician.. 13:38:54 Pre-procedure instructions explained to patient. 13:39:07 Pre-op teaching completed and patient verbalized understanding. 13:39:10 Family in patients room. 13:39:11 Patient NPO since Midnight. 13:39:17 Is the patient allergic to Iodine/contrast media? No. 13:39:18 Was the patient premedicated? No 13:39:20 Is patient on blood thinner?Yes 13:39:23 ACC The patient was administered the following blood thiners within the last 24 hours: ACCPlavix 13:39:30 Patient diabetic? No. 13:39:33 Previous problem with sedation/anesthesia? No ? 13:39:34 Snore? Yes 13:39:35 Sleep apnea? No 13:39:36 Deviated septum? No 13:39:38 Opens mouth fully? Yes 13:39:40 Sticks out tongue? Yes 13:39:43 Airway obstruction? No ? 13:39:46 Dentures? No ? 13:39:49 Pre procedure: right dorsailis pedis pulse 2+ Normal; easily identifiable; not easily obliterated 13:39:52 Pre procedure: left dorsailis pedis pulse 2+ Normal; easily identifiable; not easily obliterated 13:39:54 Patient pain scale 0/10 ?. 13:40:02 IV patent on arrival in right antecubital with 0.9% NaCl at [facility]. 13:40:14 Lab results completed and on chart. 13:40:19 Right Radial & Right Groin area was prepped with chlora-prep and draped in sterile fashion 13:40:20 Alarms reviewed by R. N. 13:40:20 Sharps counted by scrub and verified by R.N. 13:40:21 Physician arrived 13:40:22 --------ALL STOP TIME OUT------ 13:40:22 Final Timeout: patient, procedure, and site verified with staff and physician. All members of the team are in agreement. 13:40:26 Right Radial & Right Groin site verified by team. 13:40:28 Physical assessment completed. ASA score P 2 - A patient with mild systemic disease as per Francisco Fleming MD. 13:40:32 Sedation plan: IV Moderate Sedation Medication:Versed, Fentanyl 13:40:[address] FELICIANO PCI 13:40:46 INFLATOR Merit BasixCompak ([id number]) opened to sterile field. 13:40:47 SHEATH 6FR [place]on ([id number]) opened to sterile field. 13:41:00 Use device set Acist 13:41:01 ACIST Manifold (88949) opened to sterile field. 13:41:02 ACIST Hand Control (43265) opened to sterile field. 13:41:02 ACIST Syringe (09766) opened to sterile field. 13:41:08 Versed 2 mg I.V. was administered by Avis Pretty RN; for sedation; 13:41:19 Fentanyl 50 mcg I.V. was administered by Avis Pretty RN; for sedation; 13:43:09 Zero performed for pressure channel P1 13:43:14 Zero performed for pressure channel P1 13:44:16 Procedure started. 13:44:20 Local anesthetic to right radial artery with Lidocaine 2% by Francisco Fleming MD.INITIAL ACCESS ONLY 13:44:29 A 6 Fr Short sheath was inserted into the Right Radial artery 13:44:53 Fentanyl 50 mcg I.V. was administered by Avis Pretty RN; for sedation; 13:44:56 SHEATH 6FR Slender ([id number]) opened to sterile field. 13:45:01 Versed 1 mg I.V. was administered by Avis Pretty RN; for sedation; 13:45:09 GUIDE 6FR HS I catheter (LA6HSI) opened to sterile field. 13:46:39 Heparin Bolus 4000 units I.V. was administered by Avis Pretty RN; for anticoagulation; verified by dr. wasserman 13:47:52 6 Fr hs 1 guide catheter was inserted over the wire 13:48:29 Versed 1 mg I.V. was administered by Avis Pretty RN; for sedation; 13:48:39 Fentanyl 100 mcg I.V. was administered by Avis Pretty RN; for sedation; 13:50:14 Versed 1 mg I.V. was administered by Avis Pretty RN; for sedation; verified by dr. wasserman 13:51:49 Versed 1 mg I.V. was administered by Avsi Pretty RN; for sedation; verified by dr. wasserman 13:52:14 Guide Catheter removed. unable to cannulate vessel. 13:53:47 GUIDE 6FR AR 1.0 catheter ([id number]) opened to sterile field. 13:55:06 Fentanyl 50 mcg I.V. was administered by Avis Pretty RN; for sedation; verified by dr. wasserman 13:55:22 WHISPER 300cm guide wire ([id number]) opened to sterile field. 13:55:36 RCA angiography performed. 13:57:28 whisper wire advanced. 13:59:31 Inflation Number: 1 A INTEGRITY OTW 3.5 X 26 stent ([id number]) was prepped and advanced across the Dist RCA. The stent was deployed at 12 RANCHO for 0:30 (min:sec). 14:00:01 Fentanyl 50 mcg I.V. was administered by Avis Pretty RN; for sedation; verified by dr. wasserman 14:01:02 Stent catheter was removed intact over wire. 14:04:03 Inflation Number: 1 A INTEGRITY OTW 3.5 X 30 stent ([id number]) was prepped and advanced across the Mid RCA. The stent was deployed at 14 RANCHO for 0:30 (min:sec). 14:05:08 Stent catheter was removed intact over wire. 14:08:29 Inflation Number: 1 A INTEGRITY OTW 4.0 X 30 stent ([id number]) was prepped and advanced across the Prox RCA. The stent was deployed at 12 RANCHO for 0:30 (min:sec). 14:09:14 Stent catheter was removed intact over wire. 14:09:15 Wire removed. 14:09:15 Guide catheter removed. 14:09:53 TR BAND Standard ([id number]) opened to sterile field. 14:11:07 Sheath removed intact; hemostasis achieved with Mechanical Compression to the Right Radial artery. 14:11:08 Procedure ended.(Physican Out) 14:11:23 Fluoroscopy time 07.70 minutes. 14:11:29 Flurop Dose total: 789 14:11:29 Fluoroscopy dose: 789 mGy 14:11:34 Contrast amount:Isovue 300 80ml. 14:11:38 TR band inflated with 10cc of air. 14:11:40 Insertion/operative site no bleeding no hematoma. 14:11:44 Post right radial artery:stable 14:11:45 Post Procedure Pulses reassessed and unchanged 14:11:50 Post procedure rhythm: unchanged. 14:11:53 Estimated blood loss: 5 ml 14:11:54 Post procedure instruction explained to patient.Patient verbalizes understanding. 14:11:55 Patient needs reinforcement of post procedure teaching. 14:12:10 Procedure type changed to Cath procedure, PCI procedure, Coronary Stent, Coronary Stent Initial, Miscellaneous Procedures, Moderate Sedation up to 30 minutes 14:12:12 Procedure and supply charges have been captured, reviewed, submitted and are correct. 14:12:56 Procedure Complication : No complications 14:13:06 Vital chart was stopped 14:13:07 See physician's report for complete and final results. 14:13:13 Report given to Pre/Post Procedure Room. 14:13:20 Patient transfered to Pre/Post Procedure Room with Stretcher. 14:13:23 Procedure ended. 14:13:23 Full Disclosure recording stopped 14:13:26 End room use (Document Last) 14:13:31 ACC-PCI Only Patient was given prescriptions, or instructed by Francisco Fleming MD to start/continue the following medications upon discharge: Plavix Intervention Summary Intervention Notes Time ActionType Lesion and Equipment Action# Pressure Duration Attributes Used 13:59:31 Place stent Dist RCA INTEGRITY 1 12 00:30 OTW 3.5 X 26 stent ([id number]) 14:04:03 Place stent Mid RCA INTEGRITY 1 14 00:30 OTW 3.5 X 30 stent ([id number]) 14:08:29 Place stent Prox RCA INTEGRITY 1 12 00:30 OTW 4.0 X 30 stent ([id number]) Device Usage Item Name Manufacture Quantity Catalog Hospital Part Current Minimal Lot# / Number Charge Number Stock Stock Serial# Code INFLATOR Merit 1 [id number] 807532 613659 693417 15 Merit Medical BasixCompak (AH7233) SHEATH 6FR Terumo 1 [id number] 752102 337856 761041 40 [place] (JWN255) ACIST Acist 1 85522 660023 029442 793186 5 Manifold Medical (45477) Systems Inc ACIST Hand Acist 1 30821 877599 197082 913566 5 Control Medical (97826) Systems Inc ACIST Acist 1 52883 358581 332609 629962 20 Syringe Medical (19651) Systems Inc SHEATH 6FR Terumo 1 [id number] 733672 342560 223066 40 Slender ([id number]) GUIDE 6FR HS Medtronic 1 LA6HSI 896822 62494 075436 1 I catheter (LA6HSI) GUIDE 6FR AR Medtronic 1 [id number] 876970 50881 321108 1 1.0 catheter (OZ8WJ62) WHISPER Eastman 1 [id number] 794482 151398 769596 5 300cm guide Vascular wire ([id number]) INTEGRITY Medtronic 1 [id number] 132284 418080 5 [id number] OTW 3.5 X 26 stent ([id number]) INTEGRITY Medtronic 1 [id number] 033344 798110 7 [id number] OTW 3.5 X 30 stent ([id number]) INTEGRITY Medtronic 1 [id number] 263452 954637 4 [id number] OTW 4.0 X 30 stent ([id number]) TR BAND Terumo 1 [id number] 519018 559072 116748 40 Standard ([id number]) Signature Audit [place] Stage Time Signature Unsigned Intra-Procedure 08/05/2017 Ange Worthington 2:15:07 PM RT(R) Signatures Monitor : Ange Worthington RT Signature : Date : Time : [place] [address] [id number] [place], [place] [address]
[~2017-08-05 10:50] MED LIST: ATIVAN1 MG PO; CELEXA20 MG PO; LIPITOR20 MG PO; METOPROLOL TART50 MG PO; PLAVIX75 MG PO; SYNTHROID50 MCG PO
[2017-08-05 11:37] VITALS: BP 135/81; Ht 182.9 cm; Wt 84.1 kg
[2017-08-05 12:01] LABS: BASOPHILS 0.3 % (0-2); EOSINOPHILS 1.9 % (0-7); HEMOGLOBIN 15.6 g/dL (12-16); IMMATURE GRANULOCYTES 0.2 % (0-5); LYMPHOCYTES 17.6 % (15-50); MCHC 34.7 g/dL (31.0-37.0); MCV 89.5 fL (80.0-100.0); MEAN PLATELET VOLUME 9.8 fL (7.4-10.4); MONOCYTES 4.5 % (2-11); NEUTROPHILS 75.5 % (40-80); RBC 5.03 10x6/uL (4.00-5.40); RDW 12.9 % (11.5-14.5); WBC 14.4 10x3/uL (4.8-10.8)
[2017-08-05 12:06] LABS: PLATELET COUNT 392 10x3/uL (130-400)
[2017-08-05 12:14] LABS: CALC OSMOLALITY 277 mosm/kg (275-300); CALCIUM 9.2 mg/dL (8.5-10.1); CARBON DIOXIDE 27.6 mmol/L (21.0-32.0); CHLORIDE - SERUM 104 mmol/L (98-107); CREATININE - SERUM 0.6 mg/dL (0.6-1.3); GLUCOSE 92 mg/dL (74-106); POTASSIUM - SERUM 3.7 mmol/L (3.5-5.1); SODIUM 141 mmol/L (136-145); UREA NITROGEN 5 mg/dL (7-18); eGFR NON AFRICAN AMERICAN > 90 mL/min (90-120)
--- NOTE | 2017-08-05 14:40 | NUR ---
2L NC, NO RESP DISTRESS. RIGHT WRIST TR BAND CDI, NO BLEEDING OR HEMATOMA NOTED. NO C/O PAIN OR NAUSEA. VSS. FAMILY AT BEDSIDE, CALL LIGHT WITHIN REACH.
--- NOTE | 2017-08-05 15:10 | NUR ---
RIGHT WRIST TR BAND CDI, NO BLEEDING OR HEMATOMA NOTED. 2L NC, NO RESP DISTRESS. VSS. NO C/O PAIN OR NAUSEA. WILL CONTINUE TO MONITOR.
--- NOTE | 2017-08-05 15:25 | NUR ---
DRINK AND SANDWICH TRAY GIVEN, NO C/O NAUSEA. RIGHT WRIST TR BAND CDI, NO BLEEDING OR HEMATOMA NOTED. 2L NC, NO RESP DISTRES. VSS. FAMILY AT BEDSIDE, CALL LIGHT WITHIN REACH.
--- NOTE | 2017-08-05 16:00 | NUR ---
RESTING QUIETLY WITH EYES CLOSED. RIGHT WRIST TR BAND CDI, NO BLEEDING OR HEMATOMA NOTED. 2L NC, NO RESP DISTRESS. NO C/O PAIN OR NAUSEA. VSS. CALL LIGHT WITHIN REACH.
--- NOTE | 2017-08-05 17:11 | NUR ---
4CC OF AIR REMOVED FROM TR BAND, NO BLEEDING NOTED.
--- NOTE | 2017-08-05 17:25 | NUR ---
3CC OF AIR REMOVED FROM TR BAND, NO BLEEDING NOTED.
--- NOTE | 2017-08-05 17:45 | NUR ---
LEFT AC PIV D/C'D WITH CATHETER INTACT, BAND AID TO SITE. UP TO BEDSIDE TO GET DRESSED.
--- NOTE | 2017-08-05 17:50 | NUR ---
REMAINING AIR REMOVED FROM TR BAND, DRESSING PLACED TO SITE. DISCHARGE INSTRUCTIONS GIVEN, VERBALIZED UNDERSTANDING.
--- NOTE | 2017-08-05 18:00 | NUR ---
TAKEN OUT VIA WHEELCHAIR BY CATH HANDLE MAKER. LEFT FACILITY WITH FAMILY AND ALL PERSONAL BELONGINGS.
--- NOTE | 2017-08-09 08:17 | OP ---
PATIENT NAME: SHELLY BONILLA MEDICAL RECORD: [id number] :75 LOCATION:D.CAT ADMISSION DATE: SURGEON: FIDE LUGO MD DATE OF OPERATION: 08/05/2017 PROCEDURE: PTCA Stent. For catheterization report please see report dictated previously. DESCRIPTION OF PROCEDURE: After a radial sheath was placed in the right radial artery, an AR1 guiding catheter provided good guide catheter support followed by a 300 cm Whisper wire was placed across the severely diffusely diseased right down this portion of this vessel. Stents deployed were in succession a 3.5 x 26 mm Integrity nondrug-eluting stent up to 14 atmospheres, mid portion vessel addressed with a 30-mm 3.5 Integrity stent up to 14 atmospheres and finally the proximal portion was addressed with a 4.0 x 30 mm Integrity nondrug-eluting stent up to 14 atmospheres. IMPRESSION: Successful stenting to right coronary with multiple lesions of 80% to 90%, no significant residual. JAYJAY flow was 3 throughout the procedure. Heparin was used during the case. Sheath was closed with ExoSeal device. TRANSINT:[id number] Voice Confirmation ID: [id number] DOCUMENT ID: [id number] FIDE LUGO MD at 0817 CC: [id number] DICTATION DATE: 08/05/17 1419 CAR SUPERVISOR: 08/05/17 1513 DEP CLI 08/05/17 [facility] [address] [place] [address]
== END 2017-08-05 18:00 | disposition home or self-care (01) ==
LOC: D.CATH 10:50
PROVIDERS: Internal Medicine Interventional Cardiology
DX: I25.110 Atherosclerotic heart disease of native coronary artery with unstable angina pectoris (principal); Z01.812 Encounter for preprocedural laboratory examination; I10 Essential (primary) hypertension; E78.5 Hyperlipidemia, unspecified; E03.9 Hypothyroidism, unspecified

== ENCOUNTER 2018-12-06 09:54 | Inpatient (IN) | payer MEDICAID ==
[~2018-12-06] VITALS: Ht 182.9 cm; Wt 82.1 kg
[2018-12-06] MEDS ORDERED: ZETIA10 MG PO (10:27)
[2018-12-06] MEDS ORDERED: CHANTIX 1 MG TAB1 MG PO (10:28)
[2018-12-06] MEDS ORDERED: BAYER CHEWABLE81 MG PO (10:28)
[2018-12-06 11:21] LABS: ALBUMIN 3.8 g/dL (3.4-5.0); ALKALINE PHOSPHATASE 86 U/L (46-116); ALT (SGPT) 29 U/L (10-68); CALC OSMOLALITY 277 mosm/kg (275-300); CALCIUM 8.7 mg/dL (8.5-10.1); CARBON DIOXIDE 25.4 mmol/L (21.0-32.0); CHLORIDE - SERUM 105 mmol/L (98-107); CREATININE - SERUM 0.6 mg/dL (0.6-1.3); GLUCOSE 100 mg/dL (74-106); POTASSIUM - SERUM 3.9 mmol/L (3.5-5.1); PROTEIN - SERUM 7.7 g/dL (6.4-8.2); SODIUM 140 mmol/L (136-145); UREA NITROGEN 9 mg/dL (7-18); eGFR NON AFRICAN AMERICAN > 90 mL/min (90-120)
[2018-12-06 11:24] LABS: BASOPHILS 0.1 % (0-2); EOSINOPHILS 0 % (0-7); HEMATOCRIT 44.4 % (36.0-48.0); HEMOGLOBIN 15.8 g/dL (12-16); IMMATURE GRANULOCYTES 0.2 % (0-5); LYMPHOCYTES 17.7 % (15-50); MCH 30.7 pg (26.0-34.0); MCHC 35.6 g/dL (31.0-37.0); MCV 86.4 fL (80.0-100.0); MEAN PLATELET VOLUME 9.5 fL (7.4-10.4); MONOCYTES 2.9 % (2-11); NEUTROPHILS 79.1 % (40-80); RBC 5.14 10x6/uL (4.00-5.40); RDW 12.4 % (11.5-14.5); WBC 16.8 10x3/uL (4.8-10.8)
[2018-12-06 11:25] LABS: APPEARANCE CLEAR (CLEAR); BILIRUBIN NEGATIVE (NEGATIVE); COLOR STRAW (YELLOW); GLUCOSE NEGATIVE (NEGATIVE); KETONE NEGATIVE (NEGATIVE); NITRITE NEGATIVE (NEGATIVE); PROTEIN NEGATIVE (NEGATIVE); UROBILINOGEN NORMAL (NORMAL)
[2018-12-06 11:26] LABS: PLATELET COUNT 295 10x3/uL (130-400)
[2018-12-06 11:29] LABS: APTT 32.8 SECONDS (22.8-39.4); INR 0.97 (0.85-1.17); PROTIME 12.4 SECONDS (11.6-15.0)
[2018-12-08] VITALS (21 sets, daily range): BP systolic 92–127; BP diastolic 48–67; BMI 23.1; BMI 24.3
[2018-12-08 12:17] LABS: PLT FUNCT.(P2Y12) PLAVIX 211 PRU (194-418)
--- NOTE | 2018-12-08 13:28 | NUR ---
PT ARRIVED TO ROOM 1240 LETHARGIC FROM SURGERY BUT DOES RESPOND AND FOLLOW COMMANDS, WEANED O2 TO 4L NC, A LINES RADIAL BILAT, ORDERS FROM MOHAMUD TO DC R RADIAL A LINE, , A LINE ZEROED WITH GOOD WAVEFORM, WRIST PROTECTOR IN PLACE BILAT GROIN INCISIONS CDI SOFT TO PALPATE, PULSES DOPPLERED, WILL CONTINUE TO MONITOR
--- NOTE | 2018-12-08 15:27 | NUR ---
POOJA AND DOPAMINE WEANED OFF
[2018-12-08] MEDS ORDERED: PERCOCET 5-3251 TAB PO (16:25)
--- NOTE | 2018-12-08 17:34 | NUR ---
ATE 100% CLEAR LIQUID TRAY, TOLERATED WELL
--- NOTE | 2018-12-08 21:00 | NUR ---
1900 REPORT RECEIVED CARE ASSUMED. PT LAYING IN BED RESTING ASSESSMENT DONE SEE FLOW SHEET. VSS. NO SIGNS OF ACUTE DISTRESS NOTED. WILL CONITNUE TO MONITOR. 2100 MEDS GIVEN PER OCT. VSS. NO DIFFICULTY SWALLOWING NOTED.
--- NOTE | 2018-12-08 23:00 | NUR ---
REASSESSMENT COMPLETE. SEE FLOW SHEET. [place] CARE PROVIDED. L FOOT UNABLE TO PALP PULSE. PULSE STILL DOPPLERED. VSS WILL CONITNUE TO MONITOR.
[2018-12-09] VITALS (12 sets, daily range): BP systolic 115–138; BP diastolic 57–75; Ht 182.9 cm; Wt 82.1 kg
--- NOTE | 2018-12-09 01:00 | NUR ---
PT IN BED RESTING VSS NO SINGS OF ACUTE DISTRESS NOTED WILL CONTINUE TO MONITOR.
--- NOTE | 2018-12-09 03:00 | NUR ---
REASSESSMENT DONE SEE FLOW SHEET VSS.
--- NOTE | 2018-12-09 05:00 | NUR ---
WATER PROVIDED PER PT REQUEST. VSS. IS TEACHING PROVIDED IS 2500. WILL CONTINUE TO MONITOR.
[2018-12-09 06:09] LABS: CALC OSMOLALITY 276 mosm/kg (275-300); CALCIUM 7.6 mg/dL (8.5-10.1); CARBON DIOXIDE 26.6 mmol/L (21.0-32.0); CHLORIDE - SERUM 106 mmol/L (98-107); CREATININE - SERUM 0.4 mg/dL (0.6-1.3); GLUCOSE 94 mg/dL (74-106); POTASSIUM - SERUM 3.1 mmol/L (3.5-5.1); SODIUM 140 mmol/L (136-145); UREA NITROGEN 6 mg/dL (7-18); eGFR NON AFRICAN AMERICAN > 90 mL/min (90-120)
--- NOTE | 2018-12-09 06:50 | NUR ---
DR MOHAMUD INFORMED OF PT STATUS. MED ORDER RECEIVED SEE OCT. ORDER TO AMBULATE PT DOWN PARMAR GIVEN. VSS WILL CONITNUE TO MONITOR.
--- NOTE | 2018-12-09 07:05 | NUR ---
AMBULATED APPROX 200 FT. TOLERATED WELL. DENIES PAIN IN RICCI GROIN SITES.
[2018-12-09 07:24] LABS: HEMATOCRIT 30.3 % (36.0-48.0); HEMOGLOBIN 10.6 g/dL (12-16); MCV 85.8 fL (80.0-100.0); MEAN PLATELET VOLUME 9.6 fL (7.4-10.4); RBC 3.53 10x6/uL (4.00-5.40); RDW 12.8 % (11.5-14.5); WBC 16.1 10x3/uL (4.8-10.8)
--- NOTE | 2018-12-09 09:05 | NUR ---
0750: Aaron RADIAL ART LINE DC'D. MANUAL PRESSURE HELD X 2 MIN. DRESSED WITH 2X2 AND SECURED WITH TAPE. 0800: BRY BROOKE'D.
--- NOTE | 2018-12-09 12:00 | NUR ---
1130: [place] MOREAU. SITE DRESSED WITH 2X2 AND TEGADERM.
--- NOTE | 2018-12-09 12:05 | NUR ---
DISCHARGE INSTRUCTIONS REVIEWED.
--- NOTE | 2018-12-09 12:34 | NUR ---
HOME WITH . ESCORTED TO VEHICLE IN WHEELCHAIR.
--- NOTE | 2018-12-09 18:42 | MORECARE ---
CASE MANAGEMENT DISCHARGE SUMMARY PATIENT: SHELLY BONILLA UNIT: [id number] ADM DATE: 12/08/18 AGE: 43 : 75 SEX: F ROOM/BED: [facility] AUTHOR: JEREMIAH POE PHYSICIAN: REFERRING PHYSICIAN: IAN MOHAMUD MD DATE OF SERVICE: 12/09/18 Discharge Plan Patient Name: SHELLY BONILLA [facility] 1975 Planned Disposition: Home Anticipated Discharge Date: Discharge Date: 12/09/2018 Expected LOS: Initial Reviewer: [email or web address] Initial Review Date: 12/08/2018 Generated: 12/09/18 7:41 pm Patient Name: SHELLY BONILLA Page [id number] at 1842 All edits/amendments must be made on the electronic document DICTATION DATE: 12/09/181840 EMERGENCY PLANNING AND RESPONSE MANAGER: LYDIA 12/09/181840 RPT#: [id number] DC DATE:12/09/18 STATUS: DIS IN [facility] [address] [place] [address] END OF REPORT
--- NOTE | 2018-12-09 18:49 | MORECARE ---
CASE MANAGEMENT DISCHARGE SUMMARY PATIENT: SHELLY BONILLA UNIT: [id number] ADM DATE: 12/08/18 AGE: 43 : 75 SEX: F ROOM/BED: D.[facility] AUTHOR: JEREMIAH POE PHYSICIAN: REFERRING PHYSICIAN: IAN MOHAMUD MD DATE OF SERVICE: 12/09/18 Discharge Plan Patient Name: SHELLY BONILLA [facility] [facility] 1975 Planned Disposition: Home Anticipated Discharge Date: Discharge Date: 12/09/2018 Expected LOS: Initial Reviewer: [email or web address] Initial Review Date: 12/08/2018 Generated: 12/09/18 7:48 pm Comments DCP- Discharge Planning Updated by [email or web address]: Kendra Joseph on 12/09/18 5:[address] Patient Name: SHELLY BONILLA Admission Status: Elective Accout number: [id number] Admission Date: 12-08-2018 : 1975 Admission Diagnosis: Attending: IAN MOHAMUD Current LOS: 1 Anticipated DC Date: Planned Disposition: Home Primary Insurance: [place] PRIVATE OPTIONS JUAN Discharge Planning Comments: CM met with patient at bedside. Patient states she lives at home with her and plans to return to their home upon discharge. Patient denies any discharge needs at this time. CM will continue to follow and assist as needed with discharge planning / needs. Environmental Aid: Kendra Joseph Last DP export: 12/09/18 5:42 p Patient Name: SHELLY BONILLA Page 64350 at 1849 All edits/amendments must be made on the electronic document DICTATION DATE: 12/09/181847 RIP MACHINE OPERATOR: LYDIA 12/09/181847 RPT#: [id number] DC DATE:12/09/18 STATUS: DIS IN [facility] [address] [place] [address] END OF REPORT
--- NOTE | 2018-12-09 19:36 | MORECARE ---
CASE MANAGEMENT DISCHARGE SUMMARY PATIENT: SHELLY BONILLA UNIT: [id number] ADM DATE: 12/08/18 AGE: 43 : 75 SEX: F ROOM/BED: D[facility] AUTHOR: JEREMIAH POE PHYSICIAN: REFERRING PHYSICIAN: IAN MOHAMUD MD DATE OF SERVICE: 12/09/18 Discharge Plan Patient Name: SHELLY BONILLA [facility] [facility] 1975 Planned Disposition: Home Anticipated Discharge Date: Discharge Date: 12/09/2018 Expected LOS: Initial Reviewer: [email or web address] Initial Review Date: 12/08/2018 Generated: 12/09/18 8:36 pm Comments DCP- Discharge Planning Updated by [email or web address]: Kendra Joseph on 12/09/18 5:[address] Patient Name: SHELLY BONILLA Admission Status: Elective Accout number: [id number] Admission Date: 12-08-2018 : 1975 Admission Diagnosis: Attending: IAN MOHAMUD Current LOS: 1 Anticipated DC Date: Planned Disposition: Home Primary Insurance: [employer] [place] [employer] OPTIONS JUAN Discharge Planning Comments: CM met with patient at bedside. Patient states she lives at home with her and plans to return to their home upon discharge. Patient denies any discharge needs at this time. CM will continue to follow and assist as needed with discharge planning / needs. Overnight Houseperson: Kendra Joseph Last DP export: 12/09/18 5:49 p Patient Name: SHELLY BONILLA Page [id number] at 1936 All edits/amendments must be made on the electronic document DICTATION DATE: 12/09/181935 FRANCHISE MANAGER: LYDIA 12/09/181935 RPT#: [id number] DC DATE:12/09/18 STATUS: DIS IN [facility] [address] [facility] [place] [address] END OF REPORT
--- NOTE | 2018-12-12 07:26 | OP ---
PATIENT NAME: SHELLY BONILLA MEDICAL RECORD: [id number] :75 LOCATION:D.[facility] ADMISSION DATE:12/08/18 SURGEON: DENILSON MOHAMUD MD DATE OF OPERATION: 12/08/2018 SURGEON: Denilson Mohamud MD BILLIARD TABLE REPAIRER: Jose Fuller PROCEDURES PERFORMED: 1. Insertion of bifurcated aortic and iliac endograft. 2. Bilateral iliac angioplasty. 3. Distal aortic angioplasty. 4. Aortogram times 2. 5. Right iliac angiogram times 2. 6. Left iliac angiogram. 7. Left femoral endarterectomy with patch closure. PREOPERATIVE DIAGNOSIS: Aortoiliac occlusive disease. POSTOPERATIVE DIAGNOSIS: Aortoiliac occlusive disease. ANESTHESIA: General endotracheal anesthesia. ESTIMATED BLOOD LOSS: 200 cc. COMPLICATIONS: None. SPECIMENS: None. CONDITION: Stable. DISPOSITION: CV ICU. OPERATIVE FINDINGS: 1. With the patient under general anesthesia, right dorsalis pedis and posterior tibial and left posterior tibial could be Dopplered, where these were absent previously in the clinic. 2. Percutaneous access using ultrasound guidance to both common femoral arteries. Predeployed ProGlides on the left, 8-Norwegian sheath on the left, and 7-Norwegian on the right. 3. Significant difficulty directing the wire through the severe calcification in the proximal right common iliac as the wire would only go distally down the left common iliac, so it was snared and pushed through the plaque into the aorta. 4. Right iliac angioplasty with a 7-mm x 40 balloon and simultaneous angioplasty on the left after the catheter had been exchanged for a stiff wire. 5. Placement of the AFX introducer device and in the main body on the left and grasping the contralateral limb and placing it on the right. Post-dilation was performed with 7-mm kissing balloons in the distal aorta and in each iliac. A 12 x 40 balloon used in the distal aorta. The final angiogram showed good deployment of the device with no constriction; however, spasm of the right external iliac. It was dilated with 6 x 60 and then arteriogram through the sheath showed no further obstruction to flow. 6. Removal of the Endologix sheath from the left groin and percutaneous OPERATIVE REPORT [id number] SHELLY BONILLA closure. Iliac angiogram demonstrated occlusion. Cutdown performed, demonstrating a posterior plaque that was obstructive. An endarterectomy was performed with patch closure with subsequent excellent flow. 7. Angio-Seal in the right groin. 8. Good Doppler in right posterior tibial and dorsalis pedis and left posterior tibial at the conclusion of the case. INDICATION: Claudication with severe aortoiliac occlusive disease. PROCEDURE IN DETAIL: The patient was brought to the operating suite and placed on as above. Bilateral femoral accessed under ultrasound, controlled, and predeployed with ProGlides. Right iliac wire grasped and left iliac and passed into the distal aorta. Stiff wire placed on the left. Bilateral kissing 7 x 40 balloons and 22 x 40 limbs. Bifurcated graft placed in the usual manner, post-dilation with again kissing 7 x 40's and a 12 x 40 balloon. Completion angiogram with good deploy of the endograft, but right iliac spasm, which was then dilated with a 6 x 60. Completion angiogram with no further spasm and good flow through the right and then on the left. The sheath was removed. ProGlides were closed. Completion angiogram revealed obstruction. Attempt was made to cross from the right to the left but unsuccessful to pass a balloon 5 mm down that side; therefore, cutdown was performed. Inflow occluded and backflow controlled with a Vesseloop. Endarterectomy performed with the obstructive posterior plaque with a resultant good flow using a CorMatrix patch. Good Doppler signal. The right side was closed using an Angio-Seal. Hemostasis was ensured and good Doppler. Heparin management was performed by anesthesia, maintaining activated clotting times 150-200. TRANSINT:[id number] Voice Confirmation ID: [id number] DOCUMENT ID: [id number] DENILSON MOHAMUD MD at 0726 CC: [facility] [id number] DICTATION DATE: 12/08/18 1559 CALIBRATION TECHNICIAN: 12/08/18 1757 DIS IN 12/09/18 [place] [id number] [place] [id number]
== END 2018-12-09 12:34 | disposition home or self-care (01) | DRG 269 ==
LOC: D.SDCHOLD 11:00 → D.CVICU 12-08 05:00 → D.SDCHOLD 12-08 07:30 → D.CVICU 12-08 12:06
PROVIDERS: ADMIT Thoracic Surgery (Cardiothoracic Vascular Surgery); ATTEND Thoracic Surgery (Cardiothoracic Vascular Surgery)
PROC: 04UL0JZ Supplement Left Femoral Artery with Synthetic Substitute, Open Approach (ICD-10-PCS; 2018-12-08)
PROC: 047J3ZZ Dilation of Left External Iliac Artery, Percutaneous Approach (ICD-10-PCS; 2018-12-08)
PROC: 047H3ZZ Dilation of Right External Iliac Artery, Percutaneous Approach (ICD-10-PCS; 2018-12-08)
PROC: 04703ZZ Dilation of Abdominal Aorta, Percutaneous Approach (ICD-10-PCS; 2018-12-08)
PROC: 04CL0ZZ Extirpation of Matter from Left Femoral Artery, Open Approach (ICD-10-PCS; principal; 2018-12-08 07:30)
PROC: 04V03DZ Restriction of Abdominal Aorta with Intraluminal Device, Percutaneous Approach (ICD-10-PCS; 2018-12-08 07:30)
DX: I74.09 Other arterial embolism and thrombosis of abdominal aorta (principal); I70.213 Atherosclerosis of native arteries of extremities with intermittent claudication, bilateral legs; I10 Essential (primary) hypertension; F41.8 Other specified anxiety disorders

== ENCOUNTER → 2019-01-05 10:26 | Outpatient (CLI) | payer BC ==
[2018-12-09 09:22] VITALS: BMI 24.5
--- NOTE | ~2019-01-05 | ST ---
PATIENT:SHELLY ARRIAGA MEDICAL RECORD: [id number] SEX: F LOCATION:[facility] ORDER #: ADMISSION DATE: 01/05/19 AGE OF PATIENT: 43 REFERRING PHYSICIAN: INTERPRETING PHYSICIAN: MING POPE MD DATE OF SERVICE: 01/05/2019 DIAGNOSES: 1. Angina. 2. Coronary artery disease. 3. Hypertension. 4. Hyperlipidemia. Ms. Arriaga was exercised under standard Cosmo protocol for 7 minutes 33 seconds achieving greater than 85% maximum target heart rate response with 25 mCi of sestamibi injected at peak stress, 9 mCi used previously for rest images. FINDINGS: Gated SPECT reveals preserved ejection fraction at 72% with good wall motion and thickening and brightening throughout all segments. SPECT Imaging: Cardiolite was used as myocardial fusion agent. There is homogeneous uptake throughout all segments at rest and stress with no evidence of inducible ischemia or previous infarction. OVERALL IMPRESSION: 1. This is a normal nuclear stress test with no evidence of inducible ischemia or previous infarction. 2. Gated SPECT reveals a preserved ejection fraction at 72%. In this patient with ongoing symptomatology, the current scan does not suggest the presence of hemodynamically significant coronary artery disease. Evaluate noncardiac etiology of chest pain. TRANSINT:[id number] Voice Confirmation ID: [id number] DOCUMENT ID: [id number] MING POPE MD CC: [id number] DICTATION DATE: 01/06/19931 ARBORIST: 01/07/19 0019 DEP CLI 01/05/19 [facility] [address] [place] [address]
[~2019-01-05 10:26] MED LIST changes: +BAYER CHEWABLE81 MG PO; +CHANTIX 1 MG TAB1 MG PO; +PERCOCET 5-3251 TAB PO; +ZETIA10 MG PO
--- NOTE | 2019-01-10 12:26 | EC ---
PATIENT:SHELLY BONILLA DATE OF SERVICE: 01/05/19 SEX: F MEDICAL RECORD: [id number] DATE OF : 75 LOCATION:D.[facility] AGE OF PATIENT: 43 ADMISSION DATE: 01/05/19 REFERRING PHYSICIAN: INTERPRETING PHYSICIAN: FIDE LUGO MD ECHOCARDIOGRAM REPORT ECHO CHARGES 4 ECHO COMPLETE Date: 01/05/19 CLINICAL DIAGNOSIS: HTN/ANGINA/ HX OF CAD/PVD ECHOCARDIOGRAPHIC MEASUREMENTS (adult normal given) AC root (d.<3.7cm) 3.1 cm LV Septum d (<1.2 cm> 1.4 cm Valve Excursion 1.5 cm LV Septum (systole) 1.7 cm Left Atria (s.<4.0cm> 3.4 cm LVPW d(<1.2cm) 1.6 cm RV (d.<2.3cm) 2.8 cm LVPW (sytole) 1.8 cm LV diastole(<5.6CM) 4.0 cm MV E-F(>70mm/sec) cm LV systole 2.2 cm LVOT Diameter 2.2 cm MV exc.(>10mm) 2.0 cm Est.ejection fraction (50-75%) % DOPPLER: LVIT cm/sec A 70.0 cm/sec E 59.0 cm/sec LA cm/sec RVSP 30 mmHg LVOT 131 cm/sec AOP1/2T m/s Asc. Ao 143 cm/sec RVOT 93 cm/sec RA cm/sec PA 121 cm/sec AV Gradient Peak 8.13 mmHg AV Mean 4.47 mmHg AV Area 3.1 cm MV Gradient Peak 2.97 mmHg MV Mean 1.18 mmHg MV Area cm COMMENTS: Green Chain Offbearer: Lynne CAMPO Bulk Delivery Driver: 3 Dr. Fleming TAPE# PACS Pericardial Effusion N DATE OF SERVICE: 01/05/2019 Adequate 2-D, color-flow and spectral Doppler, and M-mode. Mild LVH. LV internal dimensions are normal. Wall motion is normal. EF is greater than or equal to 55%. Aortic valve is tricuspid. No evidence of stenosis by Doppler interrogation. Left atrium is normal at 3.4 cm. Mitral valve shows no prolapse. Trace MR. Right-sided chambers are grossly normal. Trace TR. ECHOCARDIOGRAM REPORT [id number] SHELLY BONILLA TRANSINT:[id number] Voice Confirmation ID: [id number] DOCUMENT ID: [id number] FIDE LUGO MD at 1226 CC: [id number] DICTATION DATE: 01/09/19 1337 LINE PATROLMAN: 01/09/19 1451 [facility] CLI 01/05/19 [place] [id number] [place] [id number]
== END | disposition home or self-care (01) ==
LOC: D.HCCARDIO 10:26
PROVIDERS: ATTEND Internal Medicine Interventional Cardiology
DX: I25.119 Atherosclerotic heart disease of native coronary artery with unspecified angina pectoris (principal); I10 Essential (primary) hypertension

== ENCOUNTER → 2019-03-20 14:03 | Outpatient (CLI) | payer MEDICAID ==
[2018-12-09 09:22] VITALS: BMI 24.5
== END | disposition home or self-care (01) ==
LOC: D.US 14:03
PROVIDERS: ATTEND Thoracic Surgery (Cardiothoracic Vascular Surgery)
DX: I74.09 Other arterial embolism and thrombosis of abdominal aorta (principal)

== ENCOUNTER → 2019-03-30 08:47 | Outpatient (CLI) | payer MEDICAID ==
[2018-12-09 09:22] VITALS: BMI 24.5
== END | disposition home or self-care (01) ==
LOC: D.CT 08:47
PROVIDERS: ATTEND Thoracic Surgery (Cardiothoracic Vascular Surgery)
DX: I73.9 Peripheral vascular disease, unspecified (principal)

== ENCOUNTER 2019-06-01 06:09 | Inpatient (IN) | payer OTHER ==
[~2019-06-01] VITALS: Ht 182.9 cm; Wt 98.4 kg
[2019-06-05 11:25] LABS: BASOPHILS 0.3 % (0-2); EOSINOPHILS 2.9 % (0-7); HEMATOCRIT 42.1 % (36.0-48.0); HEMOGLOBIN 14.1 g/dL (12-16); IMMATURE GRANULOCYTES 0.2 % (0-5); MCH 29.1 pg (26.0-34.0); MCHC 33.5 g/dL (31.0-37.0); MCV 86.8 fL (80.0-100.0); MEAN PLATELET VOLUME 9.1 fL (7.4-10.4); MONOCYTES 6.5 % (2-11); NEUTROPHILS 63.1 % (40-80); RBC 4.85 10x6/uL (4.00-5.40); RDW 13.3 % (11.5-14.5); WBC 9.7 10x3/uL (4.8-10.8)
[2019-06-05 11:26] LABS: PLATELET COUNT 326 10x3/uL (130-400)
[2019-06-05 11:28] LABS: APPEARANCE CLEAR (CLEAR); BILIRUBIN NEGATIVE (NEGATIVE); COLOR STRAW (YELLOW); GLUCOSE NEGATIVE (NEGATIVE); KETONE NEGATIVE (NEGATIVE); NITRITE NEGATIVE (NEGATIVE); PROTEIN NEGATIVE (NEGATIVE); SPECIFIC GRAVITY 1.005 (1.005-1.020); UROBILINOGEN NORMAL (NORMAL)
[2019-06-05 11:41] LABS: ALBUMIN 3.5 g/dL (3.4-5.0); ALKALINE PHOSPHATASE 84 U/L (46-116); ALT (SGPT) 19 U/L (10-68); BILIRUBIN - TOTAL 0.21 mg/dL (0.2-1.3); CALC OSMOLALITY 279 mosm/kg (275-300); CALCIUM 8.7 mg/dL (8.5-10.1); CARBON DIOXIDE 28.3 mmol/L (21.0-32.0); CHLORIDE - SERUM 106 mmol/L (98-107); CREATININE - SERUM 0.6 mg/dL (0.6-1.3); GLUCOSE 94 mg/dL (74-106); INR 0.99 (0.85-1.17); POTASSIUM - SERUM 4.3 mmol/L (3.5-5.1); PROTEIN - SERUM 7.4 g/dL (6.4-8.2); PROTIME 12.6 SECONDS (11.6-15.0); SODIUM 141 mmol/L (136-145); UREA NITROGEN 9 mg/dL (7-18); eGFR NON AFRICAN AMERICAN > 90 mL/min (90-120)
[2019-06-05] MEDS ORDERED: CYCLOBENZAPRINE10 MG PO ×2 (12:00→12:01)
[2019-06-05] MEDS ORDERED: KLONOPIN0.5 MG PO (12:01)
[2019-06-05] MEDS ORDERED: MIRAPEX0.25 MG PO (12:01)
[2019-06-05] MEDS ORDERED: NEURONTIN 300300 MG PO (12:01)
[2019-06-05] MEDS ORDERED: AVAPRO300 MG PO (12:02)
[2019-06-05] MEDS ORDERED: HYDROCHLOROTHIA25 MG PO (12:03)
[2019-06-05] MEDS ORDERED: EFFIENT10 MG PO (12:03)
[2019-06-05] MEDS ORDERED: LEXAPRO20 MG PO (12:03)
[2019-06-05] MEDS ORDERED: ZOFRAN4 MG PO (12:04)
[2019-06-05] MEDS ORDERED: FEXOFENADINE H180 MG PO (12:05)
[2019-06-05] MEDS ORDERED: OMEGA-3100 MG PO (12:05)
[2019-06-07] VITALS (35 sets, daily range): BP systolic 104–152; BP diastolic 54–89; BMI 29.7
--- NOTE | 2019-06-07 14:22 | NUR ---
RECEIVED PATIENT FROM RECOVERY. HOOKED UP TO MONITOR. VSS. PATIENT AWAKE AND ORIENTED
--- NOTE | 2019-06-07 15:17 | NUR ---
INITIATED NITROGLYCERIN DRIP AT 5ML/HR PER ORDER FOR BP 152/85
--- NOTE | 2019-06-07 17:12 | NUR ---
PLACED WORK ORDER FOR ROOM TEMPERATURE TO BE TURNED DOWN PER PATIENT REQUEST. TITRATING NITROGLYCERIN DRIP NEEDED FOR BP
--- NOTE | 2019-06-07 17:45 | MORECARE ---
CASE MANAGEMENT DISCHARGE SUMMARY PATIENT: SHELLY BONILLA UNIT: [id number] ADM DATE: 06/07/19 AGE: 43 : 75 SEX: F ROOM/BED: [facility] AUTHOR: JEREMIAH POE PHYSICIAN: REFERRING PHYSICIAN: IAN MOHAMUD MD DATE OF SERVICE: 06/07/19 Discharge Plan Patient Name: SHELLY BONILLA [facility] [facility] 1975 Planned Disposition: Home Anticipated Discharge Date: Discharge Date: Expected LOS: Initial Reviewer: [email or web address] Initial Review Date: 06/07/2019 Generated: 06/07/19 6:44 pm Patient Name: SHELLY BONILLA Page 13895 at 1746 All edits/amendments must be made on the electronic document DICTATION DATE: 06/07/191743 DIESEL INSTRUCTOR: LYDIA 06/07/191743 RPT#: [id number] DC DATE: STATUS: ADM IN [facility] [address] [place] [address] END OF REPORT
--- NOTE | 2019-06-07 17:55 | MORECARE ---
CASE MANAGEMENT DISCHARGE SUMMARY PATIENT: SHELLY BONILLA UNIT: [id number] ADM DATE: 06/07/19 AGE: 43 : 75 SEX: F ROOM/BED: D.[facility] AUTHOR: JEREMIAH POE PHYSICIAN: REFERRING PHYSICIAN: IAN MOHAMUD MD DATE OF SERVICE: 06/07/19 Discharge Plan Patient Name: SHELLY BONILLA Facility: [facility]:[place] : 1975 Planned Disposition: Home Anticipated Discharge Date: Discharge Date: Expected LOS: Initial Reviewer: [email or web address] Initial Review Date: 06/07/2019 Generated: 06/07/19 6:54 pm Comments DCP- Discharge Planning Updated by [email or web address]: Kendra Joseph on 06/07/19 4:[address] Patient Name: SHELLY BONILLA Admission Status: Elective Accout number: [id number] Admission Date: 06-07-2019 : 1975 Admission Diagnosis: Attending: IAN MOHAMUD Current LOS: 1 Anticipated DC Date: Planned Disposition: Home Primary Insurance: [employer] INS EXCHANGE Discharge Planning Comments: CM met with patient to complete initial dc planning assessment. CM educated patient on the CM role and verbal consent given by patient to complete assessment. Patient lives at home with her where she is independent with her care. At discharge patient plans to return home and feels this is a safe discharge. CM discussed availability of home health, rehab services, and medical equipment. Her family will drive her home upon discharge. Patient denied known discharge needs at this time. CM will continue to follow and will assist as needed with dc plans/needs. Revenue Manager: Kendra Joseph DCPIA - Discharge Planning Initial Assessment Updated by [email or web address]: Kendra Joseph on 06/07/19 5:47 pm * Is the patient Alert and Oriented? Yes * How many steps to enter\exit or inside your home? * PCP GARRETT FORD APN * Pharmacy [facility] * Preadmission Environment Home Alone * ADLs Independent * Equipment Cane * List name and contact numbers for known caregivers / representatives who currently or will assist patient after discharge: FARHAN BONILLA- SPOUSE- [phone] IFEANYI BUITRAGO - DAUGHTER- [phone] * Verbal permission to speak to the caregivers and representatives has been obtained from the patient. No * Community resources currently utilized None * Additional services required to return to the preadmission environment? No * Can the patient safely return to the preadmission environment? Yes * Has this patient been hospitalized within the prior 30 days at any hospital? No Last DP export: 06/07/19 4:45 p Patient Name: SHELLY BONILLA Page 68508 at 1755 All edits/amendments must be made on the electronic document DICTATION DATE: 06/07/191753 ADJUNCT PHYSICS INSTRUCTOR: LYDIA 06/07/191753 RPT#: [id number] DC DATE: STATUS: ADM IN [facility] [address] [place] [address] END OF REPORT
--- NOTE | 2019-06-07 19:00 | NUR ---
SHIFT ASSESSMENT COMPLETE. PT IS A&O X4 AND STATES THAT SHE HAS A HEADACHE. REPOSITIONED FOR COMFORT. PILLOW AND GOWN PROVIDED. PERRLA, 3 MM, BRISK REACTION TO LIGHT. RR EVEN AND UNLABORED, CLEAR LUNG SOUNDS HEARD BILAT THROUGHOUT ALL LOBES. S1S2 AUDIBLE, NSR SHOWING ON MONITOR. ABD FLAT AND NONTENDER TO TOUCH, BS ACTIVE X4. L&R HAND PIVs NOTED INFUSING NITRO @ 26 MCG/MIN AND D5 1/2 NS @ 150 ML/HR. WILL TITRATE NITRO PER ORDERS AND TOLERATED. CRITICORE LONDONO INTACT DRAINING CLEAR YELLOW URINE. RADIAL AND PEDAL PULSES PALP, WARM TO TOUCH. R GROIN DRESSING CDI, NO S/S OF HEMATOMA FORMATION. CALL LIGHT IN REACH, BED IN LOWEST POSITION. SHE DENIES ANY NEEDS AT THIS TIME. WILL CONT WITH POC.
--- NOTE | 2019-06-07 21:00 | NUR ---
AT BEDSIDE. ALL QUESTIONS ANSWERED, UPDATED HIM ON PT CONDITION. SMALL SNACK BROUGHT TO PT FROM , 100% CONSUMED. RT GROIN INSERTION SITE CDI, NO S/S HEMATOMA FORMATION. VSS. TITRATING NITRO GTT PER ORDERS. PO MEDS TAKEN WITHOUT DIFFICULTY. NO FURTHER NEEDS AT THIS TIME. WILL CONT WITH POC.
--- NOTE | 2019-06-07 23:00 | NUR ---
REASSESSMENT COMPLETE. PT STATES THAT HER CHUA HAS GONE AWAY AND THAT SHE IS NO LONGER HAVING ANY PAIN OR DISCOMFORT. PT IS ABLE TO REPOSITION HERSELF INDEPENDENTLY. VSS. SEE FLOWSHEET FOR FURTHER DETAILS. CALL LIGHT IN REACH, BED IN LOWEST POSITION. WILL CONT WITH POC.
[2019-06-08] VITALS (14 sets, daily range): BP systolic 96–124; BP diastolic 51–74; Ht 182.9 cm; Wt 98.4 kg
--- NOTE | 2019-06-08 01:00 | NUR ---
PT RESTING WITH NO SIGNS OF ACUTE DISTRESS NOTED. RT GROIN DRESSING INTACT, NO HEMATOMA FORMATION NOTED. CALL LIGHT IN REACH, BED IN LOWEST POSITION. WILL CONT WITH POC.
--- NOTE | 2019-06-08 03:00 | NUR ---
REASSESSMENT COMPLETE. NO CHANGES IN PT CONDITION. VSS. SEE FLOWSHEET FOR FURTHER DETAILS. PT REPOSITIONS HERSELF INDEPENDENTLY. WILL CONT WITH POC. CALL LIGHT IN REACH.
[2019-06-08 04:38] LABS: HEMATOCRIT 40.4 % (36.0-48.0); HEMOGLOBIN 13.7 g/dL (12-16); MCHC 33.9 g/dL (31.0-37.0); MCV 85.4 fL (80.0-100.0); MEAN PLATELET VOLUME 9.1 fL (7.4-10.4); RBC 4.73 10x6/uL (4.00-5.40); RDW 13.5 % (11.5-14.5); WBC 14.3 10x3/uL (4.8-10.8)
[2019-06-08 04:55] LABS: ALBUMIN 3.3 g/dL (3.4-5.0); ALKALINE PHOSPHATASE 78 U/L (46-116); ALT (SGPT) 17 U/L (10-68); BILIRUBIN - TOTAL 0.29 mg/dL (0.2-1.3); CALC OSMOLALITY 279 mosm/kg (275-300); CALCIUM 8.1 mg/dL (8.5-10.1); CARBON DIOXIDE 27.8 mmol/L (21.0-32.0); CHLORIDE - SERUM 105 mmol/L (98-107); CREATININE - SERUM 0.7 mg/dL (0.6-1.3); GLUCOSE 120 mg/dL (74-106); POTASSIUM - SERUM 3.6 mmol/L (3.5-5.1); PROTEIN - SERUM 7.2 g/dL (6.4-8.2); SODIUM 141 mmol/L (136-145); UREA NITROGEN 8 mg/dL (7-18); eGFR NON AFRICAN AMERICAN > 90 mL/min (90-120)
--- NOTE | 2019-06-08 05:00 | NUR ---
CHG BATH AND LINEN CHANGE PROVIDED. PT TOLERATED WELL. SCDS ON AND FUNCTIONING. PT TOLERATED WELL. LONDONO CARE PROVIDED. NO FURTHER NEEDS. PEDAL PULSES PALP. RT GROIN INCISION DRESSING CDI.
--- NOTE | 2019-06-08 07:30 | NUR ---
ASSISTED PT TO CHAIR WITH AM NURSE, GAIT STEADY. COMPLETE LINEN CHANGE PROVIDED. BREAKFAST TRAY PROVIDED VIA AM NURSE.
--- NOTE | 2019-06-08 10:11 | NUR ---
MORNING MEDICATIONS HAVE BEEN PROVIDED. PT DENIES PAIN, SITTING UP IN CHAIR AT THIS TIME. NO OTHER NEEDS VOICED.
--- NOTE | 2019-06-08 12:10 | NUR ---
PT RESTING QUIETLY AT THIS TIME. NO DISTRESS NOTED.
--- NOTE | 2019-06-08 12:27 | NUR ---
PT ATE FULL LUNCH TRAY. DENIES ADDITIONAL NEEDS. LONDONO CHAMBER EMPTIED. CALL LIGHT IN REACH.
--- NOTE | 2019-06-08 13:02 | NUR ---
DR MOHAMUD BY TO SEE PT. ASKED LONDONO BE REMOVED AND DC IV FLUIDS. LONDONO REMOVED, TIP INTACT. PT HAS BEEN UP TO WALK. 200FT, NO DIFFICULTY. NO SOB. 97% ON ROOM AIR AT RETURN TO CHAIR. PALPABLE PEDAL
--- NOTE | 2019-06-08 13:46 | OP ---
PATIENT NAME: SHELLY BONILLA MEDICAL RECORD: [id number] :75 LOCATION:D.[facility] ADMISSION DATE:06/07/19 SURGEON: DENILSON MOHAMUD MD DATE OF OPERATION: 06/07/2019 SURGEON: Denilson Mohamud MD SYNTHETIC PLASTERER: MOHIT Garcia MD OPERATION PERFORMED: 1. Aortic stent. 2. Aortic angioplasty. 3. Right iliac angioplasty. 4. Aortogram times 4. 5. Right iliac angiogram. 6. Access right groin procedure. INDICATION: Claudication and distal aortic stenosis. POSTOPERATIVE DIAGNOSIS: Aortic thrombosis. ANESTHESIA: General endotracheal anesthesia. ESTIMATED BLOOD LOSS: 20 cc. COMPLICATIONS: None. SPECIMENS: None. CONDITION: Stable. DISPOSITION: ICU. OPERATIVE FINDINGS: Aortogram via the right common femoral artery revealed stenosis in the upper portion of the bifurcated graft. It did not respond to dilatation with a 12-mm balloon, so a 10 x 27 stent was placed within the area. The right common iliac stenosis was noted dilated with a 7 mm x 40 balloon. Completion angiogram with no stenosis and Angio-Seal closure of the right groin. INDICATION: Claudication. DESCRIPTION OF PROCEDURE: The patient was brought to the operative suite. General anesthesia was obtained. The patient was prepped and draped. Right femoral artery was accessed with ultrasound guidance, dilated up to 5-Bulgarian, later up to 6 and 7-Bulgarian for introduction of catheters. The J wire was used to pass through the stent and then subsequently exchanged over a catheter for a stiff wire. The angiograms were performed as documented above with aortic angioplasty and then right iliac angioplasty and then placement of an aortic stent. Completion angiogram showed no residual stenosis and the Angio-Seal was placed at the right femoral site with no apparent hemorrhage. Dr. Garcia assisted w catheter placement and concurred on the treatment. TRANSINT:[id number] Voice Confirmation ID: [id number] DOCUMENT ID: [id number] OPERATIVE REPORT [id number] SHELLY BONILLAE DENILSON MOHAMUD MD at 1346 CC: [id number] DICTATION DATE: 06/07/19 1327 BOW MAKER CUSTOM: 06/07/19 2112 ADM IN [place] [id number] [place] [address]
[2019-06-08] MEDS ORDERED: ELIQUIS5 MG PO (13:55)
--- NOTE | 2019-06-08 15:49 | NUR ---
DISCHARGE TEACHING COMPLETED WITH PATIENT. HAS INFO FOR F/U. ACCOMPANIED TO AWAITING CAR.
--- NOTE | 2019-06-08 20:30 | MORECARE ---
CASE MANAGEMENT DISCHARGE SUMMARY PATIENT: SHELLY BONILLA UNIT: [id number] ADM DATE: 06/07/19 AGE: 43 : 75 SEX: F ROOM/BED: D[facility] AUTHOR: JEREMIAH POE PHYSICIAN: REFERRING PHYSICIAN: IAN MOHAMUD MD DATE OF SERVICE: 06/08/19 Discharge Plan Patient Name: SHELLY BONILLA Facility: [facility]:[place] : 1975 Planned Disposition: Home Anticipated Discharge Date: Discharge Date: 06/08/2019 Expected LOS: Initial Reviewer: [email or web address] Initial Review Date: 06/07/2019 Generated: 06/08/19 9:30 pm Comments DCP- Discharge Planning Updated by [email or web address]: Kendra Joseph on 06/08/19 7:[address] Patient Name: SHELLY BONILLA Encounter No: [id number] : 1975 Primary Insurance: [employer] INS EXCHANGE Anticipated DC Date: Planned Disposition: Home External Planned Provider: : DCP follow-up note: Patient and family in agreement with discharge plan. No changes to plan. Case management will follow and assist as needed. Kendra Joseph DCP- Discharge Planning Updated by [email or web address]: Kendra Joseph on 06/07/19 4:[address] Patient Name: SHELLY BONILLA Admission Status: Elective Accout number: [id number] Admission Date: 06-07-2019 : 1975 Admission Diagnosis: Attending: IAN MOHAMUD Current LOS: 1 Anticipated DC Date: Planned Disposition: Home Primary Insurance: [employer] INS EXCHANGE Discharge Planning Comments: CM met with patient to complete initial dc planning assessment. CM educated patient on the CM role and verbal consent given by patient to complete assessment. Patient lives at home with her where she is independent with her care. At discharge patient plans to return home and feels this is a safe discharge. CM discussed availability of home health, rehab services, and medical equipment. Her family will drive her home upon discharge. Patient denied known discharge needs at this time. CM will continue to follow and will assist as needed with dc plans/needs. Slitter Creaser Slotter Helper: Kendra Joseph DCPIA - Discharge Planning Initial Assessment Updated by [email or web address]: Kendra Joseph on 06/07/19 5:47 pm * Is the patient Alert and Oriented? Yes * How many steps to enter\exit or inside your home? * PCP [facility]RETT FORD [facility] * Pharmacy [facility] * Preadmission Environment Home Alone * ADLs Independent * Equipment Cane * List name and contact numbers for known caregivers / representatives who currently or will assist patient after discharge: FARHAN BONILLA- SPOUSE- [phone] IFEANYI BUITRAGO - DAUGHTER- [phone] * Verbal permission to speak to the caregivers and representatives has been obtained from the patient. No * Community resources currently utilized None * Additional services required to return to the preadmission environment? No * Can the patient safely return to the preadmission environment? Yes * Has this patient been hospitalized within the prior 30 days at any hospital? No Last DP export: 06/07/19 4:55 p Patient Name: SHELLY BONILLA Page [id number] at 2030 All edits/amendments must be made on the electronic document DICTATION DATE: 06/08/192029 MS SQL SERVER DEVELOPER: LYDIA 06/08/192029 RPT#: [id number] DC DATE:06/08/19 STATUS: DIS IN [facility] [address] [place] [address] END OF REPORT
== END 2019-06-08 15:50 | disposition home or self-care (01) | DRG 254 ==
LOC: D.CVICU 06-07 08:00 → D.SDCHOLD 06-07 10:30 → D.CVICU 06-08 15:50
PROVIDERS: ADMIT Thoracic Surgery (Cardiothoracic Vascular Surgery); ATTEND Thoracic Surgery (Cardiothoracic Vascular Surgery)
PROC: 047C3ZZ Dilation of Right Common Iliac Artery, Percutaneous Approach (ICD-10-PCS; 2019-06-07)
PROC: 04703DZ Dilation of Abdominal Aorta with Intraluminal Device, Percutaneous Approach (ICD-10-PCS; principal; 2019-06-07 10:30)
DX: I74.09 Other arterial embolism and thrombosis of abdominal aorta (principal); I73.9 Peripheral vascular disease, unspecified; Z87.891 Personal history of nicotine dependence; I10 Essential (primary) hypertension

== ENCOUNTER 2019-06-16 19:00 | Outpatient (CLI) | payer OTHER ==
[2019-06-08 12:55] VITALS: BMI 29.4
[~2019-06-16 19:00] MED LIST changes: +AVAPRO300 MG PO; +CYCLOBENZAPRINE10 MG PO; +EFFIENT10 MG PO; +ELIQUIS5 MG PO; +FEXOFENADINE H180 MG PO; +HYDROCHLOROTHIA25 MG PO; +KLONOPIN0.5 MG PO; +LEXAPRO20 MG PO; +MIRAPEX0.25 MG PO; +NEURONTIN 300300 MG PO; +OMEGA-3100 MG PO; +ZOFRAN4 MG PO
== END 2019-06-16 23:59 | disposition home or self-care (01) ==
LOC: D.MAMMO 19:00
PROVIDERS: ATTEND Nurse Practitioner Family
DX: Z12.31 Encounter for screening mammogram for malignant neoplasm of breast (principal)

== ENCOUNTER → 2019-08-04 13:22 | Outpatient (CLI) | payer OTHER ==
[2019-06-08 12:55] VITALS: BMI 29.4
== END | disposition home or self-care (01) ==
LOC: D.LAB 13:22 → D.RAD 13:45 → D.RT 14:00
PROVIDERS: ATTEND Internal Medicine Pulmonary Disease
DX: J44.9 Chronic obstructive pulmonary disease, unspecified (principal)